=== PATIENT | male | born 1945 | race Caucasian/White ===

== ENCOUNTER 2020-06-23 13:49 | Emergency (ER) | payer MEDICARE, SELFPAY ==
[2020-06-23] VITALS (32 sets, daily range): BP systolic 72–164; BP diastolic 24–90; PULSE 68–108; RESP 11–37; TEMP 36.6–37.6; O2SAT 95–100
--- NOTE | ~2020-06-23 | XR_ITS ---
EXAMINATION: XR chest 1V portable EXAM DATE: 06/23/2020 16:01 INDICATION: Hypoxia, hypotension. TECHNIQUE: Portable AP frontal chest x-ray was obtained. There is no prior study for comparison. FINDINGS: There is mild cardiomegaly. Pulmonary vascular congestion and possible mild pulmonary edema . No confluent consolidation, pneumothorax or pleural effusion suspected. There are mild bony degener ative changes. IMPRESSION: Findings consistent with mild CHF exacerbation. Reviewed, dictated and finalized at location A. GRAPHICAL ENGINEER
--- NOTE | ~2020-06-23 | CT_ITS ---
EXAMINATION: CT brain wo con DATE: 06/23/2020 15:59 INDICATION: Altered mental status. TECHNIQUE: Computed tomography (CT) of the head was performed without intravenous contrast. The mA wa s adjusted according to patient size. Iterative reconstruction technique was employed. The dose-lengt h product was 605.33 mGy-cm. COMPARISON: None FINDINGS: There is a hyperdense mass in left temporal lobe, consistent with intraparenchymal hemorrha ge. There is surrounding low-attenuation vasogenic edema. There is no acute ischemic infarct. There a re scattered areas of low attenuation in the cerebral white matter. The ventricles are normal in size . There is mucosal thickening in the paranasal sinuses. There are likely changes of right ocular lens replacement surgery. The mastoid air cells are normal. There is left posterior scalp soft tissue swe lling. IMPRESSION: 1. Acute intraparenchymal hematoma in left temporal lobe. I called this result to Dr. Rey. 2. Mild nonspecific cerebral white matter disease, which likely represents chronic small vessel ische bere disease. Reviewed, dictated and finalized at location A. ETIZER IMPRESSION: 1. Acute intraparenchymal hematoma in left temporal lobe. I called this result to Dr. Rey. 2. Mild nonspecific cerebral white matter disease, which likely represents automotive buyer noni small vessel ischemic disease.
--- NOTE | ~2020-06-23 | CT_ITS ---
EXAMINATION: CTA chest PE protocol EXAM DATE: 06/23/2020 15:59 INDICATION: Shortness of breath and hypoxia. Altered mental status. TECHNIQUE: Spiral CTA of the chest (pulmonary arteries) was performed with 100 cc Omnipaque 350 intr avenous contrast injection. Images were acquired during the pulmonary arterial phase. Coronal maxi mum intensity projection 3D-reconstructions were created by the technologist on dedicated workstation . Axial, coronal and sagittal reformatted images were reviewed. The dose-length product (DLP) for t his examination was 671.11 mGy-cm. The exposure was tailored according to patient size (auto mA exp osure control), and iterative reconstruction (ASIR) was used as additional dose reduction technique. There is no prior study for comparison. FINDINGS: Pulmonary arteries are well opacified and without intraluminal filling defects. No thora cic aortic dissection. There is moderate emphysema. Scattered right upper lobe pulmonary nodules up t o 6 mm probably postinfectious but a six-month follow-up chest CT is recommended. There are no pleur al or pericardial effusions. Tracheobronchial tree is patent. There is no mediastinal, hilar or a xillary lymphadenopathy. There is no pneumothorax. There is cardiomegaly and pulmonary vascular c ongestion. Some prominent interlobular, possible mild pulmonary edema.. No evidence of coronary wilbert rial calcification. There is small sliding gastroesophageal hiatal hernia. There is thoracic spondyl osis without osteoblastic or osteolytic lesions identified. IMPRESSION: 1. Findings consistent with mild CHF exacerbation. 2. Scattered right apical nodules likely postinfectious but 6 month follow-up chest CT recommended. 3. Moderate emphysema. 4. Small hiatal hernia. Reviewed, dictated and finalized at location A. ITAL ACCOUNT MANAGER
--- NOTE | 2020-06-23 14:02 | ECG_ITS ---
Measurements Intervals [place] Rate: 71 P: 52 SC: 136 QRS: 61 QRSD: 90 T: 119 QT: 419 QTc: 457 Interpretive Statements SINUS RHYTHM INCOMPLETE RIGHT BUNDLE BRANCH BLOCK BORDERLINE ST ABNORMALITY- ANTEROLATERAL LEADS BASELINE WANDER- I, II, AVR, AVL, AVF, V1-V2, V4-V5 BORDERLINE ECG Electronically Signed On 06-23-2020 14:10:33 COMPUTER SYSTEMS SECURITY ADMINISTRATOR by Harry Brown D.O.
--- NOTE | 2020-06-23 14:17 | ED.GENADULT ---
HPI - General Adult General Chief complaint: Weakness Stated complaint: LOW BP Time Seen by Provider: 06/23/20 13:59 Source: patient and EMS Mode of arrival: EMS Limitations: clinical condition History of Present Illness HPI narrative: Patient 74-year-old male brought in by EMS due to hypoxia and low blood pressure at the [facility]. Per EMS his blood pressure was in the 60s over 40s and O2 sat at 76% on room air. Patient was discharged from [facility] yesterday due to vertebral fracture. Patient denies any chest pain, shortness of breath, abdominal pain, nausea, vomiting, diarrhea or fever. Patient is a poor historian. Related Data Home Medications Medication Instructions Recorded Confirmed finasteride [Proscar] mg 06/23/20 lisinopril 10 mg PO BID 06/23/20 06/23/20 metformin 500 mg PO DAILY 06/23/20 06/23/20 metoprolol tartrate 25 mg PO DAILY 06/23/20 06/23/20 oxycodone 10 mg PO Q4H PRN 06/23/20 06/23/20 pantoprazole PO 06/23/20 polyethylene glycol 3350 [Miralax] 06/23/20 prednisone 06/23/20 propylthiouracil 06/23/20 senna 06/23/20 tamsulosin mg PO 06/23/20 Allergies Allergy/AdvReac Type Severity Reaction Status Date / Time No Known Allergies Allergy Verified 06/23/20 14:18 Review of Systems Review of Systems: ROS unobtainable: Yes unobtainable due to mental status [facility] Social History Social History Gender identity (if verbalized by the patient): Male Exam Const: General: confusion Limitations: no limitations Other: Moderate distress, frail HENMT: Head: normal to inspection, normocephalic and atraumatic Ears: hearing grossly normal bilaterally, TM normal on the right and TM normal on the left General nose exam: Normal external nose present, Normal nares present and No nasal discharge present Face and sinus: normal facial exam Mouth: Yes Normal oral and palatal mucosa present, Yes lip normal, Yes tongue normal and Yes oropharynx normal Throat: posterior oropharynx normal, tonsils normal and uvula midline Eyes: General: appearance normal, both eyes and all related structures Pupils: Equal, round and reactive pupils present EOM: EOMs intact bilaterally Neck: Neck: normal visual inspection, full ROM, no lymphadenopathy and no meningeal signs Chest: Chest palpation & inspection: normal inspection of the chest Resp: Effort & Inspection: normal respiratory effort, able to speak in complete sentences, no respiratory distress and not tachypneic Auscultation: clear to auscultation bilaterally, no crackles, no rales, no rhonchi and no wheezes Cardio: Rate: regular rate Rhythm: regular rhythm GI: Inspection: normal to inspection GI Palp: No abdominal tenderness, Yes Soft to palpation, No Tenderness to palpation present (GI), No Guarding due to palpation present (GI), No Rigid due to palpation and No Rebound tenderness present Auscultation: normal bowel sounds : General: Yes no CVA tenderness Back/Spine/Pelvis: Back: no CVA tenderness Skin: General skin exam: normal color, no rashes or lesions noted, elasticity normal and turgor normal Neuro: General: tone normal, moves all extremities, Normal light touch and pain sensation, no meningeal signs, no focal motor deficits, CN's II-XI intact bilaterally and No confusion Cranial nerves: Yes Equal, round and reactive pupils present Speech: No Abnormal speech present Sensory Exam: No Sensory deficit (Neuro) Other: Patient is not oriented to time place or person Extrem: General: normal to inspection, full ROM and capillary refill normal Psych: Appearance: grossly normal Mental Status: mental status grossly normal Speech and movement: Normal speech and movement present Affect: normal affect Attitude: cooperative Course Course Emergency Course: Reexamined at at 4:30 PM, patient is now alert and oriented x3. Patient's only complaint is I am constipated , has no other complaints. Vital Signs Vital signs: Vital Signs Temperature 36.6 C
[2020-06-23] MEDS: Please add drug allergy info to patient profile. 1 EACH XX (14:18)
[2020-06-23 14:47] LABS: Add Urine Microscopic? YES; Appearance Urine Cloudy (Clear); Bacteria Urine Trace /hpf; Bilirubin Urine Negative (Negative); Blood Urine Negative (Negative); Color Urine Yellow (Yellow); Glucose Urine UA Negative (Negative); Ketones Urine Negative (Negative); Leukocyte Esterase Ur 2+ LEU/UL (Negative); Mucus Urine Rare /lpf; Nitrate Urine Negative (Negative); Protein Urine 1+ mg/dL (Negative); Specific Grav Ur 1.019 (1.001-1.035); Squamous Epithelial Cell Urine Rare /hpf (Few); Urobilinogen Urine Negative mg/dL (<2.0); WBC Clumps Urine Present /HPF; WBC Urine >75 /hpf
[2020-06-23] MEDS: NOREPINEPHRINE 8 MG/D5W 250 ML 8 MG/250 ML BAG 13.13 MG IV CONT (14:48)
--- NOTE | 2020-06-23 15:00 | PC.NURSE ---
Patient received 2,300 ml of LR infusion on arrival to ED per sepsis protocol.
[2020-06-23 15:09] LABS: Basophils Percent Auto 0.1 % (0.2-1.2); Eosinophils Percent Auto 0.1 % (0-4.4); Hematocrit 30.1 % (42.0-52.0); Immature Granulocyte Percent A 2.1 % (0-0.5); Lymphocytes Absolute Auto 0.67 K/mm3 (0.9-3.2); Lymphocytes Percent Auto 6.9 % (18.3-44.2); Mean Corpuscular HGB Conc 29.9 g/dl (32-36); Mean Corpuscular Hemoglobin 26.2 pg (26-34); Mean Corpuscular Volume 87.5 fl (80-100); Mean Platelet Volume 9.4 fl (7.4-10.4); Monocytes Absolute Auto 0.6 K/mm3 (0.1-0.6); Monocytes Percent Auto 6.4 % (2.6-8.5); Neutrophils Absolute Auto 8.1 K/mm3 (1.3-6.7); Neutrophils Percent Auto 84.4 % (45.5-73.1); Nucleated Red Blood Cells Perc 0.3 % (0.0-0.2); Platelet Count Result 244 k/mm3 (150-375); Red Blood Count 3.44 M/mm3 (4.6-6.20); White Blood Count 9.7 K/mm3 (4.5-10.0)
--- NOTE | 2020-06-23 15:15 | PC.NURSE ---
Per patient he does not have any known drug allergies. No allergies were documented on retirement transfer paperwork.
[2020-06-23 15:18] LABS: Prothrombin Time 14.2 Seconds (11.1-14.7)
[2020-06-23 15:19] LABS: Partial Thromboplastin Time 24.4 SECONDS (22.3-36.8)
[2020-06-23 15:21] LABS: Alanine Aminotransferase 12 U/L (4-50); Alkaline Phosphatase 119 U/L (38-126); Anion Gap 11 mmol/L (8-16); Aspartate Amino Transferase 18 U/L (17-59); Bilirubin,Total 0.4 mg/dL (0.2-1.3); Blood Urea Nitrogen 31 mg/dL (9-20); Calcium 7.9 mg/dL (8.4-10.2); Carbon Dioxide 24 mmol/L (22-30); Chloride 102 mmol/L (98-107); Estimated CRCL calculation 45 ml/min; Estimated Glomerular Filt Rate 49; Glucose 124 mg/dL (75-110); Potassium 4.8 mmol/L (3.4-5.0); Sodium 137 mmol/L (137-145)
[2020-06-23 15:22] LABS: Lactic Acid Reflex 3.8 mmol/L (0.7-2.1)
--- NOTE | 2020-06-23 16:18 | PC.NURSE ---
This RN confirmed with EDP that he would like Levophed started in a 18G peripheral IV. EDP gave verbal order and Levophed was started in 18G right forearm. EDP states It can be ran in a peripheral line for 72 hours before a central line is required.
--- NOTE | 2020-06-23 17:16 | PC.NURSE ---
[facility] accepted transfer to [facility] ETA 1900 Trip #[id number]
[2020-06-23 18:06] LABS: Reflex Lactic Acid Yes or No Add Lactic
--- NOTE | 2020-06-23 18:22 | PC.NURSE ---
Levophed started again, BP reading at 77/29. EDP notified and gave VORB to resume medication.
[2020-06-23] MEDS: LACTATED RINGERS 1,000 ML 999 ML IV CONT (18:58)
--- NOTE | 2020-06-23 19:17 | PC.NURSE ---
touched base with granda new eta [id number]
[2020-06-23 19:41] LABS: Lactic Acid 4.7 mmol/L (0.7-2.1)
--- NOTE | 2020-06-23 20:29 | PC.NURSE ---
contacted [facility] new eta is [id number]
--- NOTE | 2020-06-23 20:44 | PC.NURSE ---
granda has arrived
[2020-06-23] MEDS: LACTATED RINGERS 1,000 ML 150 ML IV CONT (20:45)
--- NOTE | 2020-06-23 21:47 | PC.NURSE ---
Pt. transported to [facility] ER via [facility] w/ Levophed Infusing at 7 mcg/min.
== END 2020-06-23 21:00 | disposition short-term general hospital (02) ==
PROVIDERS: Emergency Provider Emergency Medicine; PCP Family Medicine
DX: A41.9 Sepsis, unspecified organism (principal); R65.21 Severe sepsis with septic shock; I61.9 Nontraumatic intracerebral hemorrhage, unspecified
CPT/HCPCS: 36415; 51701; 70450; 71045; 71275; 80053; 81001; 83605; 85025; 85610; 85730; 87040; 87077; 87086; 87088; 87186; 93005; 96365; 96366; 96368; 99291; J2543; J7120; Q9967

== ENCOUNTER 2020-07-08 15:02 | Inpatient (IN) | payer MEDICARE, SELFPAY ==
[2020-07-08] VITALS (45 sets, daily range): BP systolic 65–120; BP diastolic 28–67; PULSE 64–90; RESP 17–53; TEMP 36.1; O2SAT 80–100; BMI 24.1
--- NOTE | ~2020-07-08 | XR_ITS ---
EXAMINATION: XR chest 1V portable DATE: 07/11/2020 10:14 INDICATION: Hypoxic respiratory failure. TECHNIQUE: A single frontal view of the chest was obtained. COMPARISON: Chest single view 07/08/2020, chest CT 06/23/2020 FINDINGS: There is a diffuse interstitial pattern in the lungs. There are airspace opacities at the l rogelio bases. No pleural effusion or pneumothorax. The heart size is normal. IMPRESSION: 1. Diffuse lung disease with worsening at left lung base, consistent with pneumonia versus pulmonary edema superimposed on emphysema. Reviewed, dictated and finalized at location A. MAINTENANCE TECHNICIAN IMPRESSION: 1. Diffuse lung disease with worsening at left lung base, consistent with pneum onia versus pulmonary edema superimposed on emphysema.
--- NOTE | ~2020-07-08 | XR_ITS ---
EXAMINATION: XR chest 1V portable INDICATION: Shortness of breath, COVID 19 positive TECHNIQUE: Portable AP chest at 1534 hours COMPARISON: 06/23/2020 FINDINGS: There are patchy opacities throughout all lung zones. No pleural effusion or pneumothorax i s identified. The cardiomediastinal silhouette is normal. IMPRESSION: 1. Diffuse lung disease, consistent with pneumonia and/or pulmonary edema. Reviewed, dictated and finalized at location A. HOME SALES CONSULTANT
--- NOTE | ~2020-07-08 | CT_ITS ---
EXAMINATION: CT brain wo con INDICATION: Headache, recent intracranial hemorrhage COMPARISON: 06/23/2020 TECHNIQUE: Standard unenhanced head CT. The dose-length product (DLP) was 605.33 mGy-cm. The mA was a djusted according to patient size. Iterative reconstruction technique was employed. FINDINGS: Again seen is a persistent hyperdense mass in the left temporal lobe which is decreased in size measuring 1.6 cm, previously 2.3 cm. Surrounding vasogenic edema has decreased. No evidence of a cute infarction. There is mild periventricular and subcortical hypodensity probably related to small vessel ischemic disease. There is mild prominence of the sulci and ventricles related to cerebral atr ophy. Intracranial calcified cerebral atherosclerosis is noted. There are no extra-axial collections. There is no mass effect or midline shift. Changes in the globes are likely from ocular lens surgery. The visualized sinuses and mastoid air cells are well aerated. IMPRESSION: 1. Intraparenchymal hematoma of the left temporal lobe with decrease in size and decrease in surround ing vasogenic edema. No acute intracranial abnormality. 2. Age related findings. Reviewed, dictated and finalized at location A. OR SOFTWARE PROJECT MANAGER IMPRESSION: 1. Intraparenchymal hematoma of the left temporal lobe with decrease in size an d decrease in surrounding vasogenic edema. No acute intracranial abnormality. 2. Age related findings.
--- NOTE | 2020-07-08 15:04 | ECG_ITS ---
Measurements Intervals [place] Rate: 71 P: HI: 0 QRS: 32 QRSD: 76 T: 119 QT: 411 QTc: 447 Interpretive Statements SINUS RHYTHM INCOMPLETE RIGHT BUNDLE BRANCH BLOCK BASELINE ARTIFACT- I, II, III, AVR, AVL, AVF, V1-V6 ABNORMAL ECG Electronically Signed On 07-08-2020 15:37:17 CORE WINDING OPERATOR by Harry Brown D.O.
--- NOTE | 2020-07-08 15:09 | PC.NURSE ---
VERBAL ORDER FROM ERP INGE FOR SEPSIS PROTOCOL.
--- NOTE | 2020-07-08 15:09 | PC.NURSE ---
PT FOUND TO BE 86% ON HIS HOME O2 SETTING OF 4L. PLACED ON 6L WITHOUT RESULTS, PLACED ON NONREBREATHER RESULTING IN O2 SATURATION OF 88%. ED RESPIRATORY CALLED FOR STAT BIPAP PLACEMENT. [facility] RESPIRATORY THERAPIST AT BEDSIDE.
[2020-07-08 15:37] LABS: Alveolar/Arterial O2 Gradient 630.6 mmHg; Fractional Inspired Oxygen 100 %; HCO3 ABG 17.2 mEq/l (22.0-26.0); Oxygen Content ABG 11.2 %vol (16.0-22.0); Oxyhemoglobin 82.5 % THb (90.0-100.0); PCO2 ABG 29.9 mmHg (35.0-45.0); PO2 ABG 52.5 mmHg (80.0-100.0); PO2 FiO2 Ratio Arterial Blood 0.52 %; Total Hemoglobin 9.6 g/dL (12.0-18.0); pH ABG 7.377 (7.350-7.450)
[2020-07-08 15:38] LABS: Basophils Percent Auto 0.2 % (0.2-1.2); Hematocrit 35.1 % (42.0-52.0); Hemoglobin 10.4 g/dL (14.0-18.0); Immature Granulocyte Absolute 0.07 K/mm3 (0.00-0.031); Immature Granulocyte Percent A 1.2 % (0-0.5); Lymphocytes Absolute Auto 0.39 K/mm3 (0.9-3.2); Lymphocytes Percent Auto 6.9 % (18.3-44.2); Mean Corpuscular HGB Conc 29.6 g/dl (32-36); Mean Corpuscular Hemoglobin 25.9 pg (26-34); Mean Corpuscular Volume 87.5 fl (80-100); Mean Platelet Volume 10.5 fl (7.4-10.4); Monocytes Absolute Auto 0.4 K/mm3 (0.1-0.6); Monocytes Percent Auto 7.1 % (2.6-8.5); Neutrophils Absolute Auto 4.8 K/mm3 (1.3-6.7); Neutrophils Percent Auto 84.6 % (45.5-73.1); Platelet Count Result 257 k/mm3 (150-375); Red Blood Count 4.01 M/mm3 (4.6-6.20); Red Cell Distribution Width 18.7 % (11.5-14.5); White Blood Count 5.7 K/mm3 (4.5-10.0)
[2020-07-08 15:41] LABS: Device NON-REBREATHER MASK; Site Drawn LEFT BRACHIAL
[2020-07-08 15:44] LABS: Ovalocytes 1+ (NORMAL); Platelet Estimate Adequate (Adequate)
--- NOTE | 2020-07-08 15:46 | PC.NURSE ---
PT ATTEMPTED UA, UNABLE TO VOID, REFUSING CATH, TO ATTEMPT LATER.
[2020-07-08 15:47] LABS: INR 1.1; Prothrombin Time 14.4 Seconds (11.1-14.7)
[2020-07-08 15:48] LABS: Partial Thromboplastin Time 28.2 SECONDS (22.3-36.8)
[2020-07-08 15:52] LABS: Lactic Acid Reflex 6.8 mmol/L (0.7-2.1)
[2020-07-08 15:56] LABS: Albumin Level 3.8 g/dL (3.5-5.1); Alkaline Phosphatase 111 U/L (38-126); Anion Gap 14 mmol/L (8-16); Aspartate Amino Transferase 39 U/L (17-59); Bilirubin,Total 0.6 mg/dL (0.2-1.3); Blood Urea Nitrogen 42 mg/dL (9-20); Calcium 9.1 mg/dL (8.4-10.2); Carbon Dioxide 21 mmol/L (22-30); Chloride 103 mmol/L (98-107); Estimated CRCL calculation 28 ml/min; Estimated Glomerular Filt Rate 33; Glucose 145 mg/dL (75-110); Potassium 4.8 mmol/L (3.4-5.0); Sodium 138 mmol/L (137-145)
[2020-07-08 16:01] LABS: Alanine Aminotransferase 31 U/L (4-50)
[2020-07-08 16:02] LABS: NT Pro B Type Natriuretic Pept 975 PG/ML (5-100); Troponin I 0.021 ng/mL (0.000-0.034)
[2020-07-08] MEDS: SODIUM CHLORIDE 0.9% IV 1,000 ML 999 ML IV CONT ×3 (16:05→17:11)
[2020-07-08 16:09] LABS: CRP 16.7 mg/dL (<1.0)
[2020-07-08 16:12] LABS: Add Urine Microscopic? YES; Appearance Urine Clear (Clear); Bilirubin Urine Negative (Negative); Blood Urine Negative (Negative); Color Urine Yellow (Yellow); Glucose Urine UA 1+ mg/dL (Negative); Ketones Urine Negative (Negative); Leukocyte Esterase Ur Negative LEU/UL (Negative); Mucus Urine Rare /lpf; Nitrate Urine Negative (Negative); Protein Urine Negative (Negative); Specific Grav Ur 1.018 (1.001-1.035); Squamous Epithelial Cell Urine Occasional /hpf (Few); Urobilinogen Urine Negative mg/dL (<2.0)
--- NOTE | 2020-07-08 16:17 | PC.NURSE ---
RESP tHERAPIST [facility] PLACING BIPAP ON PT.
--- NOTE | 2020-07-08 16:17 | PC.NURSE ---
Addendum entered by Giovanni Stern RN 07/08/20 16:18: CORRECT TIME [id number] Original Note: PT NOTED TO BE HYPOTENSIVE, VERBAL ORDER FROM ERP [facility] FOR 2L NS IV BOLUS STAT.
--- NOTE | 2020-07-08 17:09 | PC.NURSE ---
SPOKE WITH LUIS ALCAZAR, PT TO RECIEVE ONLY 160 ML OF 3RD NS LITER TO FULFILL HIS 30ML/KG SEPSIS BOLUS.
[2020-07-08] MEDS: DEXAMETHASONE SOD PHOS INJ 4 MG/ML VIAL 6 MG IV PUSH (17:12)
--- NOTE | 2020-07-08 18:03 | ED.GENADULT ---
HPI - General Adult General Chief complaint: Shortness of Breath/Dyspnea Stated complaint: SOB, covid + Time Seen by Provider: 07/08/20 15:06 History of Present Illness HPI narrative: Patient is a 74-year-old gentleman who presents the emergency department with chief complaint of shortness of breath. Patient was recently admitted at [facility] after he had a head bleed and also was diagnosed with COVID-19 pneumonia. Patient has been at a local jail and started having increasing shortness of breath the patient was brought and extremely tachypneic and hypoxic. Upon arrival the patient was placed on BiPAP and the patient is doing much better he is received fluid resuscitation and has had improvement in his blood pressure. Currently the patient is awake alert and feeling much better. Related Data Home Medications Medication Instructions Recorded Confirmed finasteride [Proscar] mg 06/23/20 lisinopril 10 mg PO BID 06/23/20 06/23/20 metformin 500 mg PO DAILY 06/23/20 06/23/20 metoprolol tartrate 25 mg PO DAILY 06/23/20 06/23/20 oxycodone 10 mg PO Q4H PRN 06/23/20 06/23/20 pantoprazole PO 06/23/20 polyethylene glycol 3350 [Miralax] 06/23/20 prednisone 06/23/20 propylthiouracil 06/23/20 senna 06/23/20 tamsulosin mg PO 06/23/20 acetaminophen 325 mg PO ONCE PRN 07/08/20 albuterol sulfate 2 puff INHALATION QID PRN 07/08/20 amiodarone 200 mg PO DAILY 07/08/20 cefpodoxime 200 mg PO BID 07/08/20 cholecalciferol (vitamin D3) 25 mcg PO DAILY 07/08/20 digoxin 125 mcg PO DAILY 07/08/20 diltiazem HCl 120 mg PO DAILY 07/08/20 ferrous sulfate [iron] 325 mg PO DAILY 07/08/20 fluticasone furoate-vilanterol 1 inh INHALATION DAILY 07/08/20 [Breo Ellipta] furosemide [Lasix] 20 mg PO DAILY 07/08/20 guaifenesin [Mucinex] 600 mg PO BID 07/08/20 isosorbide mononitrate 120 mg PO DAILY 07/08/20 lidocaine [Lidoderm] 1 patch TOPICAL DAILY 07/08/20 Allergies Allergy/AdvReac Type Severity Reaction Status Date / Time No Known Allergies Allergy Verified 06/23/20 14:18 Review of Systems Review of Systems: Narrative: A 10 system review of systems was completed on the patient and is negative except for what is stated in the HPI. Nursing and ancillary documentation was reviewed. PMFSH Social History Social History Gender identity (if verbalized by the patient): Male Comments Intercerebral hemorrhage, vertebral fracture COVID-19 Social history the patient is a resident of a local nursing facility Exam Narrative: Exam Narrative: GENERAL: Well-appearing, well-nourished, and in no acute distress. HEAD: Normocephalic, atraumatic. EYES: PERRLA and EOMI. ENT: Nares clear, no rhinorrhea or epistaxis. Mucous membranes moist. NECK: Supple. CHEST: Clear to auscultation. Moderate respiratory distress. HEART: Regular rate and rhythm. No murmur heard. Normal peripheral pulses. ABDOMEN: Soft, nontender, nondistended, normal active bowel sounds. EXTREMITIES: Normal range of motion. No edema. SKIN: Warm, dry, no rash. NEURO: No focal deficits. Alert and oriented x3. PSYCH: Normal mood and affect. Course Course Emergency Course: Patient was started on BiPAP and received fluid resuscitation. The patient was recently at [facility] and it was discussed with [facility] but they are currently holding a 48-hour wait for beds. The patient has significantly improved and the case was discussed with the hospitalist service and the patient will be admitted locally received fluid resuscitation IV antibiotics and the patient will be admitted to the IMCU. Vital Signs Vital signs: Vital Signs Pulse Rate 73 07/08/20 14:55 Respiratory Rate 27 H 07/08/20 14:55 Blood Pressure 92/48 L 07/08/20 14:55 Pulse Oximetry 80 L 07/08/20 14:55 Pulse Rate 68 07/08/20 18:00 Respiratory Rate 33 H 07/08/20 18:00 Blood Pressure 76/58 L 07/08/20 17:31 Pulse Oximetry 100 07/08/20 18:00 Medical Decision Making Vital Signs Vital Signs: V
--- NOTE | 2020-07-08 18:05 | PC.NURSE ---
PT C/O PAIN IN HIS BACK, DISCUSSED WITH LUIS ALCAZAR WHO IS PLACING ORDERS.
[2020-07-08] MEDS: SODIUM CHLORIDE 0.9% IV 1,000 ML 125 ML IV CONT (18:17)
[2020-07-08] MEDS: MORPHINE SULFATE (*CRX) 4 MG/ML INJ IV PUSH (18:17)
--- NOTE | 2020-07-08 18:17 | PC.NURSE ---
PER ERP LIPSMEYER VERBAL ORDER FOR 4MG MORPHINE IVP STAT.
[2020-07-08 18:35] LABS: Reflex Lactic Acid Yes or No Add Lactic
[2020-07-08 19:07] LABS: Lactic Acid 1.9 mmol/L (0.7-2.1)
--- NOTE | 2020-07-08 20:53 | ADMGEN ---
This patient, Leandro Rivas, was admitted to IMU Room 214-01 AT 2020. Patient/family oriented to hospital policies and general routines including ID bracelet, bed and alarms, visiting hours, pain management, procedures, bathroom and other care routines, personal items, smoking policy, room service/diet, and visiting hours. Information on how to activate the Rapid Response Team has been discussed. Patient/Family are encouraged to report perceived risks to care and to ask questions if they do not understand what they are told or what they should do.
[2020-07-08 21:38] LABS: Troponin I < 0.012 ng/mL (0.000-0.034)
--- NOTE | 2020-07-08 22:16 | PM.IMHP ---
H&P: HPI History of Present Illness Date/Time: 07/08/20 22:16 Chief Complaint: Hypoxia Narrative: Leandro Rivas is a 74 year old male with a past medical history CHF, atrial fibrillation not on anticoagulation due to recent intercranial hemorrhage, COPD, and BPH who presented to the ER from with shortness of breath. At the time of EMS arrival to the scene the patient was in respiratory distress and hypotensive. He received fluid resuscitation and was placed on BiPAP. On arrival to the ER his blood pressures remained low at 74/38. In the ER he received a 30 mL/kilos bolus. His blood pressures subsequently rebounded into the normal range. On Decadron 10 the ER but have subsequently discontinued this since patient received a full code worse of Decadron at the end of May to early June. Tachypneic and hypoxic. He was satting 80% on 4 L nasal cannula. His oxygenation did not improve replacement on non rebreather. The patient was only able to speak in single word sentences and was placed on BiPAP. With BiPAP patient was actually pulling tidal volumes of 800 to a 1000. While I was at the patient's bedside it did adjust his BiPAP settings to 7/5 and decreased his FiO2 down to 70% with these adjustments his tidal volumes were ranging between 500 and 800. His tachypnea improved with these adjustments. He denies having any fevers but it is feeling chilled. He denies any chest pain or palpitations. He is only a fair to poor historian and is difficult to elicit history with BiPAP in place. The patient had been admitted to [facility] 06/15/2020 due to a fall down an unknown number of steps resulting in left temporal subarachnoid hemorrhage, rib fractures and lumbar burst fracture. He had been on Xarelto at the time of his fall. His subarachnoid hemorrhage with accompanied by some vasogenic edema. He was discharged from the hospital 06/21/2020. He then presented back to our ER on 06/23/2020 was transferred back to [facility]. At that time his CT of the head demonstrated stable subarachnoid hemorrhage. At the time of his discharge from hospital on June 21 his creatinine was normal at 0.7 he was in our ER on June 23 his creatinine had jumped to 1.4 and today it is 2.0. On 06/15/2020 he was diagnosed with COVID and was started on Remdesivir and dexamethasone. He was not requiring oxygen by the time of his discharge. The information regarding the the patient's 2nd hospitalization at [facility] is not available for my review. He had evidently been evaluated on the 7th in our ER and was found to be hypotensive and septic. Was reportedly consistent with CHF exacerbation. I suspect patient was treated for pneumonia since he was discharged on a cephalosporin. The patient cannot give me any details regarding that hospitalization. Review of Systems Review of Systems: Narrative: 12 systems were reviewed with pertinent positives and negatives per HPI. Except as documented in the HPI, all other systems were reviewed and are negative. [facility] Past Medical History Medical History (Updated 07/09/20 @ 09:03 by Sharon Ragsdale DO) Atrial fibrillation BPH (benign prostatic hyperplasia) Carotid stenosis, bilateral CHF (congestive heart failure) COPD (chronic obstructive pulmonary disease) Coronary artery disease GERD (gastroesophageal reflux disease) Hyperthyroidism Iron deficiency anemia Lumbar burst fracture Acute L4 burst fracture 06/15/2020 Osteoporosis Rib fractures 06/15/2020 Subarachnoid hemorrhage 06/15/2020 left temporal with bilateral isodense subdural hematomas with both an acute and chronic component Surgical History Surgical History (Updated 07/09/20 @ 05:20 by Sharon Ragsdale DO) History of bowel resection Due to perforation History of ventral hernia repair Family History Family History Other Unknown family medical history S
[2020-07-09] VITALS (21 sets, daily range): BP systolic 102–129; BP diastolic 36–59; PULSE 63–107; RESP 20–45; TEMP 36.1–36.9; O2SAT 87–100
[2020-07-09] MEDS: SODIUM CHLORIDE 0.9% IV 1,000 ML 75 ML IV CONT ×2 (04:58→18:27)
[2020-07-09 05:53] LABS: Base Excess ABG -5.8 mEq/l (+/-2.0); Carboxyhemoglobin 0.3 % THb (0-2.0); Device NON-INVASIVE VENT; Fractional Inspired Oxygen 70 %; HCO3 ABG 18.7 mEq/l (22.0-26.0); Modified Allen's Test Pass; Oxygen Content ABG 12.5 %vol (16.0-22.0); Oxygen Saturation ABG 95.5 % (95.0-100.0); Oxyhemoglobin 92.9 % THb (90.0-100.0); PO2 ABG 78.6 mmHg (80.0-100.0); PO2 FiO2 Ratio Arterial Blood 1.12 %; Reduced Hemoglobin 6.8 %THb (0-5.0); Site Drawn RIGHT RADIAL; Total Hemoglobin 9.5 g/dL (12.0-18.0); pH ABG 7.372 (7.350-7.450)
[2020-07-09 05:54] LABS: Non-Invasive Expiratory Pressure 5 CMH2O; Non-Invasive Inspiratory Pressure 7 CMH2O; Non-Invasive Vent Rate 16 /MIN
[2020-07-09 07:15] LABS: Basophils Percent Auto 0.2 % (0.2-1.2); Hematocrit 27.9 % (42.0-52.0); Hemoglobin 8.2 g/dL (14.0-18.0); Immature Granulocyte Absolute 0.02 K/mm3 (0.00-0.031); Immature Granulocyte Percent A 0.5 % (0-0.5); Lymphocytes Percent Auto 9.6 % (18.3-44.2); Mean Corpuscular HGB Conc 29.4 g/dl (32-36); Mean Corpuscular Volume 88.6 fl (80-100); Mean Platelet Volume 10.4 fl (7.4-10.4); Monocytes Absolute Auto 0.2 K/mm3 (0.1-0.6); Neutrophils Absolute Auto 3.5 K/mm3 (1.3-6.7); Neutrophils Percent Auto 84.7 % (45.5-73.1); Platelet Count Result 168 k/mm3 (150-375); Red Blood Count 3.15 M/mm3 (4.6-6.20); Red Cell Distribution Width 18.7 % (11.5-14.5); White Blood Count 4.2 K/mm3 (4.5-10.0)
[2020-07-09] MEDS: ALBUTEROL SULFATE NEB 2.5 MG/0.5 ML INH 5 MG INHALATION ×3 (07:50→22:00)
[2020-07-09] MEDS: IPRATROPIUM BR 0.02% INH SOLN 0.5 MG/2.5 ML VIAL INHALATION ×3 (07:50→22:01)
[2020-07-09] MEDS: AMIODARONE HCL 200 MG TABLET PO (09:28)
[2020-07-09] MEDS: guaiFENesin 12 HR 600 MG TABCR PO ×2 (09:32→20:34)
[2020-07-09] MEDS: DIGOXIN TAB 125 MCG TABLET PO (09:33)
[2020-07-09] MEDS: propylthiouraciL 50 MG TABLET PO ×3 (09:33→18:28)
[2020-07-09 10:36] LABS: Anion Gap 10 mmol/L (8-16); Blood Urea Nitrogen 26 mg/dL (9-20); CRP 14.3 mg/dL (<1.0); Calcium 7.9 mg/dL (8.4-10.2); Carbon Dioxide 21 mmol/L (22-30); Chloride 111 mmol/L (98-107); Estimated CRCL calculation 67 ml/min; Estimated Glomerular Filt Rate > 60; Glucose 109 mg/dL (75-110); Lactate Dehydrogenase 748 U/L (313-618); Sodium 142 mmol/L (137-145)
[2020-07-09 10:59] LABS: Thyroid Stimulating Hormone Reflex 0.019 uIU/mL (0.465-4.68)
[2020-07-09] MEDS: TAMSULOSIN HCL 0.4 MG CAPSULE PO (10:59)
[2020-07-09] MEDS: predniSONE 10 MG TABLET PO (10:59)
[2020-07-09] MEDS: FINASTERIDE 5 MG TABLET PO (10:59)
[2020-07-09] MEDS: PANTOPRAZOLE 40 MG TABLET PO (10:59)
[2020-07-09] MEDS: ISOSORBIDE MONONITRATE 30 MG TAB.ER.24H PO (10:59)
[2020-07-09 12:09] LABS: Free T4 Free Thyroxine Reflex 2.41 ng/dL (0.78-2.19)
[2020-07-09] MEDS: AMPICILLIN SULB 3 GM/NS 100 ML 3 GM/100 ML VIAL IVPB ×3 (12:17→23:58)
[2020-07-09] MEDS: CHOLECALCIFEROL 1,000 UNITS TABLET 1000 UNITS PO (14:31)
[2020-07-09] MEDS: FERROUS SULFATE 324 MG TABLET PO (14:31)
--- NOTE | 2020-07-09 16:01 | PM.IMPN ---
Progress Note: A&P Assessment and Plan (1) Acute respiratory failure with hypoxia: Code(s): J96.01 - Acute respiratory failure with hypoxia Status: Acute Assessment and Plan: Likely due to infectious process however CHF is a possibility. The patient's hypotension with good response to fluid administration makes me lean more toward infectious process. The patient was started on Zosyn and vancomycin to treat for possible healthcare associated pneumonia given his recent multiple hospitalizations. In the would be unusual for the patient have pneumonia due to COVID-19 this far out from his initial diagnosis although certainly still a possibility. Patient is not a candidate for Decadron are Remdesivir as he did have these after his initial diagnosis at the end of May. Continue noninvasive ventilator therapy. Repeat ABG with a.m. labs. Continue nebulizer treatments with albuterol and Atrovent. Patient is 74-year-old male initially patient was seen on 06/15/20 after he had fell from stairs while on Xarelto and presented emergency department and was found to have subarachnoid hemorrhage with accompanied by some vasogenic edema patient was sent to [facility] there he was treated and sent to local longterm on 06/21/20, patient presented again to the emergency department on 06/23/20 and was transferred back to the [facility] and from there he was again discharged to local longterm for rehab, today patient was sent to emergency department the shortness of breath, upon EMS arrival patient was hypoxic and hypotensive, patient was on BiPAP and was given IV bolus upon arrival to emergency department his blood pressure was 74/38 and patient was given 30ml/kg bolus which did improve his symptoms, while at [facility] patient was diagnosed with COVID-19 and treated with Decadron and remdesivir, suspect the patient still has a lingering effect COVID-19 resulting in respiratory distress he is currently on BiPAP and unable to provide any history review of symptom, plan is to continue BiPAP and wean the patient off to nasal cannula, will continue to monitor patient and further recommendation to follow. (2) Pneumonia due to COVID-19 virus: Code(s): U07.1 - COVID-19; J12.82 - Pneumonia due to coronavirus disease 2019 Status: Acute Assessment and Plan: Plan is above (3) Acute on chronic renal failure: Qualifiers: Acute renal failure type: unspecified Chronic kidney disease stage: stage 3 (moderate) Chronic kidney disease stage 3 subtype: unspecified whether 3a or 3b Qualified Code(s): N17.9 - Acute kidney failure, unspecified; N18.30 - Chronic kidney disease, stage 3 unspecified Code(s): N17.9 - Acute kidney failure, unspecified; N18.9 - Chronic kidney disease, unspecified Status: Acute Assessment and Plan: Likely due to hypovolemia/hypotension. Will repeat BMP with a.m. labs. Monitor urine output closely. Will hold lisinopril and Lasix. (4) Hyperthyroidism: Code(s): E05.90 - Thyrotoxicosis, unspecified without thyrotoxic crisis or storm Status: Inactive Assessment and Plan: Will check TSH and continue PTU. (5) Atrial fibrillation: Code(s): I48.91 - Unspecified atrial fibrillation Status: Inactive Assessment and Plan: Continue digoxin, amiodarone and Cardizem. Subjective Date/time seen: 07/09/2020 16:23 Interval history: Patient is 74-year-old male initially patient was seen on 06/15/20 after he had fell from stairs while on Xarelto and presented emergency department and was found to have subarachnoid hemorrhage with accompanied by some vasogenic edema patient was sent to [facility] hospital there he was treated and sent to local longterm on 06/21/20, patient presented again to the emergency department on 06/23/20 and was [facility] and from there he was again discharged to local longterm for rehab, today patient was sent to emergency department the
[2020-07-10] VITALS (24 sets, daily range): BP systolic 104–135; BP diastolic 51–67; PULSE 72–160; RESP 20–445; TEMP 36.2–36.8; O2SAT 90–100
[2020-07-10] MEDS: ALBUTEROL SULFATE NEB 2.5 MG/0.5 ML INH 5 MG INHALATION ×2 (03:34→09:48)
[2020-07-10] MEDS: IPRATROPIUM BR 0.02% INH SOLN 0.5 MG/2.5 ML VIAL INHALATION ×4 (03:38→20:51)
[2020-07-10 05:20] LABS: Hematocrit 24.9 % (42.0-52.0); Hemoglobin 7.3 g/dL (14.0-18.0); Mean Corpuscular HGB Conc 29.3 g/dl (32-36); Mean Corpuscular Hemoglobin 25.2 pg (26-34); Mean Corpuscular Volume 85.9 fl (80-100); Mean Platelet Volume 10.1 fl (7.4-10.4); Platelet Count Result 171 k/mm3 (150-375); Red Cell Distribution Width 18.6 % (11.5-14.5); White Blood Count 3.7 K/mm3 (4.5-10.0)
[2020-07-10 06:04] LABS: Anion Gap 6 mmol/L (8-16); Blood Urea Nitrogen 13 mg/dL (9-20); Calcium 7.8 mg/dL (8.4-10.2); Carbon Dioxide 24 mmol/L (22-30); Chloride 113 mmol/L (98-107); Estimated CRCL calculation 87 ml/min; Estimated Glomerular Filt Rate > 60; Glucose 103 mg/dL (75-110); Magnesium 1.3 mg/dL (1.6-2.3); Potassium 3.7 mmol/L (3.4-5.0); Sodium 143 mmol/L (137-145)
[2020-07-10] MEDS: AMPICILLIN SULB 3 GM/NS 100 ML 3 GM/100 ML VIAL IVPB (07:06)
[2020-07-10] MEDS: FUROSEMIDE INJ 40 MG/4 ML VIAL IV PUSH ×2 (10:00→15:48)
--- NOTE | 2020-07-10 10:09 | PM.CNPUL ---
Assessment and Plan Assessment and plan (1) Acute respiratory failure with hypoxia: Code(s): J96.01 - Acute respiratory failure with hypoxia Status: Acute Assessment and Plan: DD may be late onset inflammatory phase of COVID-19, acute CHF with pulmonary edema. Acute bacterial pneumonia is less likely but still possible. - agree with antibiotics for now, Vancomycin, Doxy. Will switch Amp to Ceftriaxone. - change NIV settings to CPAP 8 cm H20 and titrate FiO2 for sats of 92-96% - decrease albuterol to 2.5 mg Neb Q6h - continue ipratropium 0.5 mg Neb Q6h - add pulmicort 0.5 mg Neb Q6h - add methylprednisolone 60 mg IV Q6h and discontinue prednisone - agree with trial of lasix, BNP was 975 on admission with a normal Cr. - 2D echo ordered. - f/u on blood cultures. - spoke to patient about code status and he is full code (2) Hypotension: Code(s): I95.9 - Hypotension, unspecified Status: Acute (3) CHF (congestive heart failure): Code(s): I50.9 - Heart failure, unspecified Status: Acute History of Present Illness History of Present Illness Consult date: 07/10/20 Chief complaint: COVID 19 pneumonia/respiratory failure Narrative: 74 y/o male with h/o COPD, CHF, Afib, DM, hyperthyroidism, BPH was admitted yesterday with hypotension, acute hypoxemic respiratory failure requiring NIV. His BP improved with fluid resuscitation alone and lactic acid normalized. He was started on broad spectrum antibiotics. He was recently admitted to [facility] for subarachnoid hemorrhage treated conservatively and also had COVID-19 and was apparently treated with Remdesivir and Decadron although I see no reports in EMR to confirm that. His CXR on this admission is markedly worse than two weeks ago with diffuse bilateral interstitial opacities with hyperinflated lungs Review of Systems Review of Systems: All systems reviewed & are unremarkable except as noted in HPI and below [facility] Past Medical History Medical History (Updated 07/10/20 @ 10:27 by Thalia Francis MD) Atrial fibrillation BPH (benign prostatic hyperplasia) Carotid stenosis, bilateral CHF (congestive heart failure) COPD (chronic obstructive pulmonary disease) Coronary artery disease GERD (gastroesophageal reflux disease) Hyperthyroidism Iron deficiency anemia Lumbar burst fracture Acute L4 burst fracture 06/15/2020 Osteoporosis Rib fractures 06/15/2020 Subarachnoid hemorrhage 06/15/2020 left temporal with bilateral isodense subdural hematomas with both an acute and chronic component Surgical History Surgical History (Updated 07/09/20 @ 05:20 by Sharon Ragsdale DO) History of bowel resection Due to perforation History of ventral hernia repair Family History Family History Other Unknown family medical history Social History Social History (Updated 07/09/20 @ 05:22 by Sharon Ragsdale DO) Social History: He reports that he smoked up to 3 packs of cigarettes per day and quit smoking in 2019. He smoked for approximately 54 years. He denies any history of heavy alcohol use in the past. He is currently . He reports that he has 2 children. Smoking status: Former smoker Tobacco type: cigarettes Second hand tobacco smoke exposure: Yes Alcohol intake: never Substance use: never Gender identity (if verbalized by the patient): Male Spiritual care concerns: No Meds Home Medications and Allergies Home Medications Medication Instructions Recorded Confirmed Type finasteride [Proscar] 5 mg PO DAILY 06/23/20 07/08/20 History lisinopril 10 mg PO DAILY 06/23/20 07/08/20 History metformin 500 mg PO BID 06/23/20 07/08/20 History metoprolol tartrate 25 mg PO BID 06/23/20 07/08/20 History oxycodone 10 mg PO Q4H PRN 06/23/20 07/08/20 History pantoprazole 40 mg PO DAILY 06/23/20 07/08/20 History polyethylene glycol 3350 [Miralax] 17 g PO DAILY 06/23/2006/18
--- NOTE | 2020-07-10 10:17 | ECG_ITS ---
Measurements Intervals [place] Rate: 101 P: 87 SD: 140 QRS: 69 QRSD: 125 T: 5 QT: 345 QTc: 447 Interpretive Statements SINUS TACHYCARDIA RIGHT BUNDLE BRANCH BLOCK BORDERLINE ST-T WAVE ABNORMALITY- ANTEROLATERAL LEADS BASELINE ARTIFACT- I, II, III, AVL, AVF, V1, V4-V6 ABNORMAL ECG Electronically Signed On 07-11-2020 7:08:36 DRILL SHARPENER OPERATOR by Harry Brown D.O.
[2020-07-10] MEDS: AMIODARONE HCL 200 MG TABLET PO (10:27)
[2020-07-10] MEDS: DIGOXIN TAB 125 MCG TABLET PO (10:27)
[2020-07-10] MEDS: propylthiouraciL 50 MG TABLET PO ×3 (10:27→17:12)
[2020-07-10] MEDS: guaiFENesin 12 HR 600 MG TABCR PO ×2 (10:27→21:11)
[2020-07-10] MEDS: ISOSORBIDE MONONITRATE 30 MG TAB.ER.24H PO (10:28)
[2020-07-10] MEDS: POTASSIUM CHLORIDE 20 MEQ TABLET 40 MEQ PO (10:28)
[2020-07-10] MEDS: CHOLECALCIFEROL 1,000 UNITS TABLET 1000 UNITS PO (10:30)
[2020-07-10] MEDS: TAMSULOSIN HCL 0.4 MG CAPSULE PO (10:30)
[2020-07-10] MEDS: FINASTERIDE 5 MG TABLET PO (10:30)
[2020-07-10] MEDS: PANTOPRAZOLE 40 MG TABLET PO (10:30)
[2020-07-10] MEDS: FERROUS SULFATE 324 MG TABLET PO (10:30)
[2020-07-10] MEDS: MAGNESIUM OXIDE 400 MG TABLET PO (10:31)
[2020-07-10] MEDS: MAGNESIUM SULFATE 3GM/D5W100ML 3 GM/100 ML BAG IVPB (10:36)
[2020-07-10] MEDS: methylPREDNISolone SOD SUCC 125 MG VIAL 60 MG IV PUSH ×2 (11:12→17:12)
[2020-07-10 11:45] LABS: NT Pro B Type Natriuretic Pept 1100 PG/ML (5-100); Troponin I 0.013 ng/mL (0.000-0.034)
[2020-07-10] MEDS: ALPRAZolam (*CRX) 0.25 MG TABLET PO (12:32)
--- NOTE | 2020-07-10 14:26 | PM.IMPN ---
Progress Note: A&P Assessment and Plan (1) Acute respiratory failure with hypoxia: Code(s): J96.01 - Acute respiratory failure with hypoxia Status: Acute Assessment and Plan: Patient is 74-year-old male initially patient was seen on 06/15/20 after he had fell from stairs while on Xarelto and presented emergency department and was found to have subarachnoid hemorrhage with accompanied by some vasogenic edema patient was sent to [facility] hospital there he was treated and sent to local half-way on 06/21/20, patient presented again to the emergency department on 06/23/20 and was transferred back to the [facility] and from there he was again discharged to local half-way for rehab, today patient was sent to emergency department the shortness of breath, upon EMS arrival patient was hypoxic and hypotensive, patient was on BiPAP and was given IV bolus upon arrival to emergency department his blood pressure was 74/38 and patient was given 30ml/kg bolus which did improve his symptoms, while at [facility] patient was diagnosed with COVID-19 and treated with Decadron and remdesivir, suspect the patient still has a lingering effect COVID-19 resulting in respiratory distress he is currently on BiPAP and unable to provide any history review of symptom, plan is to continue BiPAP and wean the patient off to nasal cannula, will continue to monitor patient and further recommendation to follow. 07/10 patient remains on BiPAP unable to wean the patient off consulted possum trapper suspect the patient has late phase of COVID-19 as well as pulmonary edema and pneumonia, his BiPAP was adjusted, antibiotics were changed from Unasyn to Rocephin and continue doxy and vancomycin, started patient on Solu-Medrol to 60 mg q.6, continue updraft and added Pulmicort, suggested patient will benefit from diuresing, patient is quite hypoxic on BiPAP unable to provide any review of symptoms. Will continue to monitor goal is to wean the patient off BiPAP to nasal cannula. (2) Pneumonia due to COVID-19 virus: Code(s): U07.1 - COVID-19; J12.82 - Pneumonia due to coronavirus disease 2019 Status: Acute Assessment and Plan: Plan is above (3) Acute on chronic renal failure: Qualifiers: Acute renal failure type: unspecified Chronic kidney disease stage: stage 3 (moderate) Chronic kidney disease stage 3 subtype: unspecified whether 3a or 3b Qualified Code(s): N17.9 - Acute kidney failure, unspecified; N18.30 - Chronic kidney disease, stage 3 unspecified Code(s): N17.9 - Acute kidney failure, unspecified; N18.9 - Chronic kidney disease, unspecified Status: Acute Assessment and Plan: Likely due to hypovolemia/hypotension. Will repeat BMP with a.m. labs. Monitor urine output closely. Will hold lisinopril and Lasix. (4) Hyperthyroidism: Code(s): E05.90 - Thyrotoxicosis, unspecified without thyrotoxic crisis or storm Status: Inactive Assessment and Plan: Will check TSH and continue PTU. (5) Atrial fibrillation: Code(s): I48.91 - Unspecified atrial fibrillation Status: Inactive Assessment and Plan: Continue digoxin, amiodarone and Cardizem. Subjective Date/time seen: 07/10/20 14:26 Interval history: Patient is 74-year-old male initially patient was seen on 06/15/20 after he had fell from stairs while on Xarelto and presented emergency department and was found to have subarachnoid hemorrhage with accompanied by some vasogenic edema patient was sent to [facility] hospital there he was treated and sent to local half-way on 06/21/20, patient presented again to the emergency department on 06/23/20 and was transferred back to the [facility] and from there he was again discharged to local half-way for rehab, today patient was sent to emergency department the shortness of breath, upon EMS arrival patient was hypoxic and hypotensive, patient was on BiPAP and was given IV bolus upon arrival to emergency department his blo
[2020-07-10 14:54] LABS: Anion Gap 6 mmol/L (8-16); Blood Urea Nitrogen 11 mg/dL (9-20); Calcium 7.9 mg/dL (8.4-10.2); Carbon Dioxide 27 mmol/L (22-30); Chloride 109 mmol/L (98-107); Estimated CRCL calculation 76 ml/min; Estimated Glomerular Filt Rate > 60; Glucose 152 mg/dL (75-110); Magnesium 1.9 mg/dL (1.6-2.3); Potassium 4.1 mmol/L (3.4-5.0); Sodium 142 mmol/L (137-145)
[2020-07-10] MEDS: ALBUTEROL SULFATE NEB 2.5 MG/0.5 ML INH INHALATION ×2 (14:58→20:50)
--- NOTE | 2020-07-10 16:29 | ECG_ITS ---
Measurements Intervals [place] Rate: 154 P: [place]: 0 QRS: 84 QRSD: 130 T: -21 QT: 258 QTc: 414 Interpretive Statements ATRIAL FIBRILLATION WITH RAPID VENTRICULAR RESPONSE RIGHT BUNDLE BRANCH BLOCK BORDERLINE ST-T WAVE ABNORMALITY- INFERIOR LEADS BASELINE ARTIFACT- II, III ABNORMAL ECG Electronically Signed On 07-11-2020 7:09:20 WALLET ASSEMBLER by Harry Brown D.O.
[2020-07-10] MEDS: AMIODARONE 360 MG/D5W 200 ML 360 MG/200 ML BAG 33.33 MG IV CONT (16:47)
[2020-07-10] MEDS: AMIODARONE 150 MG/D5W 100 ML 150 MG/100 ML BAG 600 MG IV CONT (16:47)
--- NOTE | 2020-07-10 17:11 | PM.CNCAR ---
Assessment and Plan Assessment and plan (1) Paroxysmal atrial fibrillation: Code(s): I48.0 - Paroxysmal atrial fibrillation Status: Acute Assessment and Plan: History of paroxysmal AFib, went into AFib RVR today, responded nicely to IV bolus of amiodarone. Will continue amiodarone IV overnight and switch back to oral amiodarone probably at a higher dose, as well as his digoxin and diltiazem. Check a digoxin level. Obviously with recent SAH we will not anticoagulate now for his atrial fibrillation. (2) Pneumonia due to COVID-19 virus: Code(s): U07.1 - COVID-19; J12.82 - Pneumonia due to coronavirus disease 2018 Status: Acute Assessment and Plan: Pneumonia and respiratory failure secondary to COVID-19 virus, on CPAP. (3) CHF (congestive heart failure): Code(s): I50.9 - Heart failure, unspecified Status: Acute Assessment and Plan: History of CHF, not well-documented. Modest elevation of proBNP. Does not appear volume overloaded. IV fluids at 75 cc an hour. Will follow. (4) Subarachnoid hemorrhage: Code(s): I60.9 - Nontraumatic subarachnoid hemorrhage, unspecified Status: Inactive Assessment and Plan: Brief neuro exam was favorable. (5) Coronary artery disease: Code(s): I25.10 - Atherosclerotic heart disease of [place] coronary artery without angina pectoris Status: Inactive Assessment and Plan: History of CAD, not well documented, stable. History of Present Illness History of Present Illness Consult date/time: 07/10/20 17:11 Requesting physician: Alice Graham MD Consult reason: atrial fibrillation Reason For Visit: COVID 19 pneumonia/respiratory failure Narrative: Date of service: 07/10/2020 Mr. Maria T Rivas is a 74-year-old male whom I was asked to see at the request of Dr. Graham for my advice and opinion regarding his AFib RVR, in consultation. The patient had been on Xarelto but fell down stairs on 06/15/2020 and suffered a subarachnoid hemorrhage. He was hospitalized at [facility] where he was diagnosed with COVID-19 pneumonia. He was transferred to a intermediate but had increasing shortness of breath and was admitted to [facility] on July 08, tachypneic, hypotensive and hypoxic. He was started on BiPAP in the emergency room and is doing better. However he went into atrial fibrillation with a rapid ventricular response today. He was given an amiodarone bolus and started on a drip, and has converted to sinus rhythm/sinus tachycardia. He denies any chest pain but does complain of shortness of breath. Mr. Rivas has apparently a history of atrial fibrillation, and he takes amiodarone, digoxin and diltiazem. Records in [facility] reviewed. PAF since 2018, previously on Eliquis. Echo 08/2018: EF 79% a dilated RV, biatrial enlargement, mild TR, RVSP 45 mmHg. H/O LE bypass. EMR notes a history of congestive heart failure and CAD (I can not find good documentation of the CHF and CAD). No records to review in Care Everywhere. Review of Systems Review of Systems: Narrative: The review of systems was very difficult to obtain as the patient is on BiPAP and tachypneic. Some of the review of systems was obtained from his nurse as well as the chart. ROS unobtainable: Yes unobtainable due to medical condition Constitutional: Constitutional: Reports fatigue and Reports weakness ENT: Denies epistaxis Cardiovascular: Cardiovascular: Denies chest pain, Denies pedal edema, Denies lightheadedness and Denies palpitations Respiratory: Respiratory: Reports cough, Reports dyspnea, Reports dyspnea on exertion and Denies wheezing Gastrointestinal: Gastrointestinal: Denies abdominal pain and Denies hematochezia Genitourinary:
[2020-07-10] MEDS: ACETAMINOPHEN 325 MG TABLET 650 MG PO (17:12)
[2020-07-10 19:13] LABS: Vancomycin Trough 9.7 ug/mL (10.0-20.0)
[2020-07-10] MEDS: BUDESONIDE RESPULE NEB 0.5 MG/2 ML AMP INHALATION (20:50)
[2020-07-10] MEDS: AMIODARONE 360 MG/D5W 200 ML 360 MG/200 ML BAG 16.67 MG IV CONT (21:13)
[2020-07-11] VITALS (22 sets, daily range): BP systolic 107–130; BP diastolic 41–55; PULSE 66–105; RESP 20–33; TEMP 36.2–36.8; O2SAT 90–97
--- NOTE | 2020-07-11 | ECHO_ITS ---
Patient Info Name: Leandro Rivas Age: 74 years : 1945 Gender: Male Ht: 67 in Wt: 160 lbs BSA: 1.86 m2 HR: 85 bpm BP: 115 / 90 mmHg Heart Rhythm: Sinus Rhythm Technical Quality: Good Exam Date: 07/11/2020 10:53 AM Exam Location: [facility] Patient Status: Inpatient Admit Date: 07/08/2020 Staff Ordering Physician: Thalia Francis MD Switch Engineer: Marquis Salvador, JMCS, RT Attending Provider: Alice Graham MD Referring Physician: Tito COOPER; Exam Type: CA echo doppler color flow Study Info Indications I50.9 - Heart failure, unspecified Complete two-dimensional, color flow and Doppler transthoracic echocardiogram is performed. Summary 1. Complete two-dimensional, color flow and Doppler transthoracic echocardiogram is performed. 2. Normal left ventricular systolic and diastolic function. 3. Very modestly sclerotic aortic valve which is nonstenotic. 4. Trace amount of mitral regurgitation. Left Ventricle Left ventricular chamber dimension is normal. Left ventricular systolic function is normal, estimated at 60-65%. The left ventricular diastolic function is normal. Right Ventricle Right ventricular chamber dimension is normal. Left Atria Left atrial chamber dimension is normal. Right Atria Right atrial chamber dimension is normal. Aortic Valve The aortic valve is trileaflet. There is mild aortic valve sclerosis. Pulmonic Valve The pulmonic valve is normal. Mitral Valve The mitral valve has normal leaflets. There is trace mitral valve regurgitation. Tricuspid Valve The tricuspid valve leaflets are not well visualized. There is mild tricuspid valve regurgitation. Pericardium/Pleural The pericardium appears normal. Aorta The aortic root size at the sinus of Valsalva is normal. Left Ventricular Outflow Tract Name Value Normal LVOT 2D LVOT Diameter 1.9 cm LVOT Doppler LVOT Peak Gradient 5 mmHg LVOT Mean Gradient 2 mmHg LVOT VTI 23 cm LVOT VTI/AV VTI Ratio 0.8 LVOT Stroke Volume 63 ml LVOT CO 4.1 l/min LVOT CI 2.2 l/min/m2 Mitral Valve Name Value Normal MV Doppler MV Decel [place] 438 cm/s2 MV PHT 56 ms MV Area (PHT) 3.9 cm2 4.0-5.0 MV Diastolic Function MV E Peak Velocity 84 cm/s MV A Peak Velocity 76 cm/s MV E/A 1.1 MV Decel Time 192 ms MV Annular TDI
[2020-07-11] MEDS: methylPREDNISolone SOD SUCC 125 MG VIAL 60 MG IV PUSH ×4 (01:28→17:33)
[2020-07-11] MEDS: IPRATROPIUM BR 0.02% INH SOLN 0.5 MG/2.5 ML VIAL INHALATION ×4 (02:11→21:32)
[2020-07-11] MEDS: ALBUTEROL SULFATE NEB 2.5 MG/0.5 ML INH INHALATION ×2 (02:11→08:56)
[2020-07-11 05:22] LABS: Hematocrit 26.9 % (42.0-52.0); Mean Corpuscular HGB Conc 29.7 g/dl (32-36); Mean Corpuscular Hemoglobin 25.6 pg (26-34); Mean Corpuscular Volume 85.9 fl (80-100); Mean Platelet Volume 9.9 fl (7.4-10.4); Platelet Count Result 161 k/mm3 (150-375); Red Blood Count 3.13 M/mm3 (4.6-6.20); Red Cell Distribution Width 18.8 % (11.5-14.5); White Blood Count 5.5 K/mm3 (4.5-10.0)
[2020-07-11 05:36] LABS: Anion Gap 4 mmol/L (8-16); Blood Urea Nitrogen 14 mg/dL (9-20); Calcium 7.8 mg/dL (8.4-10.2); Carbon Dioxide 32 mmol/L (22-30); Chloride 104 mmol/L (98-107); Estimated CRCL calculation 76 ml/min; Estimated Glomerular Filt Rate > 60; Glucose 173 mg/dL (75-110); Magnesium 1.6 mg/dL (1.6-2.3); Potassium 3.4 mmol/L (3.4-5.0); Sodium 140 mmol/L (137-145)
[2020-07-11 06:29] LABS: Digoxin < 0.4 ng/mL (0.8-2.0)
[2020-07-11] MEDS: BUDESONIDE RESPULE NEB 0.5 MG/2 ML AMP INHALATION ×2 (09:01→21:31)
[2020-07-11] MEDS: PANTOPRAZOLE 40 MG TABLET PO (09:16)
[2020-07-11] MEDS: DIGOXIN TAB 125 MCG TABLET PO (09:16)
[2020-07-11] MEDS: FINASTERIDE 5 MG TABLET PO (09:16)
[2020-07-11] MEDS: TAMSULOSIN HCL 0.4 MG CAPSULE PO (09:16)
[2020-07-11] MEDS: CHOLECALCIFEROL 1,000 UNITS TABLET 1000 UNITS PO (09:16)
[2020-07-11] MEDS: ISOSORBIDE MONONITRATE 30 MG TAB.ER.24H PO (09:16)
[2020-07-11] MEDS: MAGNESIUM OXIDE 400 MG TABLET PO (09:16)
[2020-07-11] MEDS: FERROUS SULFATE 324 MG TABLET PO (09:16)
[2020-07-11] MEDS: guaiFENesin 12 HR 600 MG TABCR PO ×2 (09:16→21:18)
[2020-07-11] MEDS: AMIODARONE HCL 200 MG TABLET PO (09:17)
[2020-07-11] MEDS: SENNOSIDES 8.6 MG TABLET BY MOUTH (09:17)
[2020-07-11] MEDS: propylthiouraciL 50 MG TABLET PO ×3 (09:17→17:32)
[2020-07-11] MEDS: LIDOCAINE 5% PATCH 1 PATCH TOPICAL (09:18)
[2020-07-11] MEDS: polyethylene glycoL 3350 17 GM POWD.PACK PO (09:18)
--- NOTE | 2020-07-11 11:25 | PM.PNCARD ---
Progress Note: A&P Assessment and Plan (1) Paroxysmal atrial fibrillation: Code(s): I48.0 - Paroxysmal atrial fibrillation Status: Acute Assessment and Plan: History of paroxysmal AFib, WillDC IV amiodarone. resume oral amiodarone. Obviously with recent SAH we will not anticoagulate now for his atrial fibrillation. (2) Pneumonia due to COVID-19 virus: Code(s): U07.1 - COVID-19; J12.82 - Pneumonia due to coronavirus disease 2018 Status: Acute Assessment and Plan: Pneumonia and respiratory failure secondary to COVID-19 virus, on CPAP. (3) CHF (congestive heart failure): Code(s): I50.9 - Heart failure, unspecified Status: Acute Assessment and Plan: History of CHF, not well-documented. Modest elevation of proBNP. Does not appear volume overloaded. IV fluids at 75 cc an hour. Will follow. (4) Subarachnoid hemorrhage: Code(s): I60.9 - Nontraumatic subarachnoid hemorrhage, unspecified Status: Inactive Assessment and Plan: Brief neuro exam was favorable. (5) Coronary artery disease: Code(s): I25.10 - Atherosclerotic heart disease of [place] coronary artery without angina pectoris Status: Inactive Assessment and Plan: History of CAD, not well documented, stable. Subjective Date/time seen: 07/11/20 11:25 Interval history: Patient is 74-year-old male initially patient was seen on 06/15/20 after he had fell from stairs while on Xarelto and presented emergency department and was found to have subarachnoid hemorrhage with accompanied by some vasogenic edema patient was sent to [facility] there he was treated and sent to local assisted on 06/21/20, patient presented again to the emergency department on 06/23/20 and was transferred back to the [facility] and from there he was again discharged to local assisted for rehab, today patient was sent to emergency department the shortness of breath, upon EMS arrival patient was hypoxic and hypotensive, patient was on BiPAP and was given IV bolus upon arrival to emergency department his blood pressure was 74/38 and patient was given 30ml/kg bolus which did improve his symptoms, while at [facility] patient was diagnosed with COVID-19 and treated with Decadron and remdesivir, suspect the patient still has a lingering effect COVID-19 resulting in respiratory distress he is currently on BiPAP and unable to provide any history review of symptom, plan is to continue BiPAP and wean the patient off to nasal cannula, will continue to monitor patient and further recommendation to follow. 07/111patient remains on BiPAP Obviously still short of breath but no chest pain. In sinus rhythm frequent PACs Review of Systems Review of Systems: ROS unobtainable: Yes unobtainable due to medical condition Constitutional: Constitutional: Reports fatigue and Reports weakness ENT: Denies epistaxis and Denies neck pain Cardiovascular: Cardiovascular: Denies chest pain, Denies pedal edema, Denies lightheadedness, Denies palpitations, Reports dyspnea and Reports dyspnea on exertion Respiratory: Respiratory: Reports cough, Reports dyspnea, Reports dyspnea on exertion and Denies wheezing Gastrointestinal: Gastrointestinal: Denies abdominal pain and Denies hematochezia Genitourinary: Genitourinary: Denies hematuria Musculoskeletal: Musculoskeletal: Denies back pain and Denies neck pain Integumentary/Breasts: Skin/Breast: Denies rash Neurologic: Reports system reviewed and no additional complaints, except as documented and Reports weakness Psychiatric: Psychiatric: Reports no additional psychiatric complaints Endocrine: Endocrine: Reports fatigue and Denies palpitations Allergic/Immunologic: Allergic/Immunolog
[2020-07-11] MEDS: POTASSIUM CHLORIDE 20 MEQ TABLET 40 MEQ PO (11:31)
[2020-07-11] MEDS: acetaZOLAMIDE TAB 250 MG TABLET 500 MG PO ×2 (11:32→17:36)
[2020-07-11] MEDS: FUROSEMIDE INJ 40 MG/4 ML VIAL 20 MG IV PUSH (11:33)
--- NOTE | 2020-07-11 13:36 | PM.PNPUL ---
Progress Note: A&P Assessment and Plan (1) Acute respiratory failure with hypoxia: Code(s): J96.01 - Acute respiratory failure with hypoxia Status: Acute (2) CHF (congestive heart failure): Code(s): I50.9 - Heart failure, unspecified Status: Acute Assessment and Plan: CXR has not greatly improved but he looks clinically better today compared to yesterday - continue diuretics as needed, maintaining negative balance - f/u in Echo results. - continue systemic steroids and current nebulized regimen - continue DVT prophylaxis - CPAP 8 cm H20 as needed alternating with high flow oxygen to keep sats 92-96% (3) Pneumonia due to COVID-19 virus: Code(s): U07.1 - COVID-19; J12.82 - Pneumonia due to coronavirus disease 2019 Status: Acute Subjective Date/time seen: 07/11/20 13:36 Interval history: Feeling better today has been off of BiPAP for a few hours since this morning and is on a non-rebreather face mask but he does not appear to be in any respiratory distress and does not appear to be labored as he did yesterday. Review of Systems Review of Systems: All systems reviewed & are unremarkable except as noted in HPI and below Objective Data Vital Signs Vital Signs: Vital Signs - 24 hr 07/10/20 13:39 07/10/20 15:05 07/10/20 15:06 Temperature Pulse Rate 107 H 103 H 103 H Respiratory Rate 49 H 49 H Blood Pressure Pulse Oximetry 97 07/10/20 15:08 07/10/20 16:00 07/10/20 16:47 Temperature 36.7 C Pulse Rate 108 H 160 H Respiratory Rate 445 H Blood Pressure 125/55 L 105/65 Pulse Oximetry 96 94 07/10/20 17:40 07/10/20 20:00 07/10/20 20:50 Temperature 36.4 C Pulse Rate 94 95 111 H Respiratory Rate 35 H 35 H Blood Pressure 105/67 Pulse Oximetry 96 96 07/10/20 21:13 07/10/20 22:00 07/10/20 23:55 Temperature 36.6 C Pulse Rate 111 H 98 99 Respiratory Rate 20 Blood Pressure 124/56 L Pulse Oximetry 97 07/11/20 00:00 07/11/20 02:00 07/11/20 02:11 Temperature Pulse Rate 95 82 105 H Respiratory Rate 20 33 H Blood Pressure Pulse Oximetry 97 07/11/20 04:00 07/11/20 06:00 07/11/20 08:00 Temperature 36.6 C 36.2 C L Pulse Rate 79 75 73 Respiratory Rate 20 26 H Blood Pressure 115/50 L 124/44 L Pulse Oximetry 93 95 07/11/20 09:16 07/11/20 09:17 07/11/20 12:00 Temperature 36.2 C L Pulse Rate 88 88 83 Respiratory Rate 31 H Blood Pressure 122/51 L Pulse Oximetry 92 Intake/Output Intake/Output: Intake & Output 07/08/20 07/09/20 07/10/20 07/11/20 23:59 23:59 23:59 23:59 Intake Total 2460 2890 2650 910 Output Total 501 753 7718 1100 Balance 2260 2215 950 -190 Meds/Results Medications: Active Medications Generic Name Dose Route Start Last Admin Trade Name Freq PRN Reason Stop Dose Admin Acetaminophen 650 mg 07/09/20 04:48 07/10/20 17:12 Acetaminophen 325 Mg Tablet PO 650 mg Q4H PRN Administration Mild Pain (1-3) or Fever Acetazolamide 500 mg 07/11/20 09:15 07/11/20 11:32 Acetazolamide Tab 250 Mg Tablet PO 07/13/20 09:16 500 mg BID DAVID Administration Alprazolam 0.25 mg 07/10/20 12:18 07/10/20 12:32 Alprazolam (*Crx) 0.25 Mg Tablet PO 0.25 mg Q8HR PRN Administration Anxiety Amiodarone HCl 200 mg 07/09/20 08:00 07/11/20 09:17 Amiodarone Hcl 200 Mg Tablet PO 200 mg DAILY@0800 DAVID Administration Budesonide 0.5 mg 07/10/20 20:00 07/11/20 09:01 Budesonide Respule Neb 0.5 Mg/2 Ml Amp INHALATION 0.5 mg Q12HRT DAVID Administration Digoxin 125 mcg 07/09/20 09:00 07/11/20 09:16 Digoxin Tab 125 Mcg Tablet PO 125 mcg DAILY DAVID Administration Diltiazem HCl 120 mg 07/09/20 09:00 07/11/20 09:17 Diltiazem Hcl Cd 120 Mg Cap.Sa.24h PO 120 mg DAILY DAVID Administration Ferrous Sulfate 324 mg 07/09/20 08:00 07/11/20 09:16 Ferrous Sulfate 324 Mg Tablet PO 324 mg DAILY@0800 DAVID Administration Finasteride 5 mg 07/09
[2020-07-11] MEDS: KCL 20 MEQ/SW 100 ML 100 ML 50 MEQ IVPB (13:40)
--- NOTE | 2020-07-11 16:37 | PM.IMPN ---
Progress Note: A&P Assessment and Plan (1) Acute respiratory failure with hypoxia: Code(s): J96.01 - Acute respiratory failure with hypoxia Status: Acute Assessment and Plan: 07/11/20 16:37 Patient is 74-year-old male initially patient was seen on 06/15/20 after he had fell from stairs while on Xarelto and presented emergency department and was found to have subarachnoid hemorrhage with accompanied by some vasogenic edema patient was sent to [facility] hospital there he was treated and sent to local detention on 06/21/20, patient presented again to the emergency department on 06/23/20 and was transferred back to the [facility] and from there he was again discharged to local [facility] for rehab, today patient was sent to emergency department the shortness of breath, upon EMS arrival patient was hypoxic and hypotensive, patient was on BiPAP and was given IV bolus upon arrival to emergency department his blood pressure was 74/38 and patient was given 30ml/kg bolus which did improve his symptoms, while at [facility] patient was diagnosed with COVID-19 and treated with Decadron and remdesivir, suspect the patient still has a lingering effect COVID-19 resulting in respiratory distress he is currently on BiPAP and unable to provide any history review of symptom, plan is to continue BiPAP and wean the patient off to nasal cannula, will continue to monitor patient and further recommendation to follow. 07/10 patient remains on BiPAP unable to wean the patient off consulted beater out suspect the patient has late phase of COVID-19 as well as pulmonary edema and pneumonia, his BiPAP was adjusted, antibiotics were changed from Unasyn to Rocephin and continue doxy and vancomycin, started patient on Solu-Medrol to 60 mg q.6, continue updraft and added Pulmicort, suggested patient will benefit from diuresing, patient is quite hypoxic on BiPAP unable to provide any review of symptoms. Will continue to monitor goal is to wean the patient off BiPAP to nasal cannula. 07/11 patient with history of proximal atrial fibrillation on oral amiodarone however last night patient went into atrial fibrillation with RVR patient was seen by Cardiology started the patient on amiodarone drip this bring his heart rate under control and today patient was seen by work car operator again and stop the amnio drip and continue his oral amiodarone patient is clinically stable, unable to anticoagulate patient due to subarachnoid hemorrhage, today patient is off BiPAP and on high-flow nasal cannula seen by pulmonology recommending continue IV steroid and updraft, patient states is feeling much better today not a short of breath denies any fever or chills (2) Pneumonia due to COVID-19 virus: Code(s): U07.1 - COVID-19; J12.82 - Pneumonia due to coronavirus disease 2019 Status: Acute Assessment and Plan: Plan is above (3) Acute on chronic renal failure: Qualifiers: Acute renal failure type: unspecified Chronic kidney disease stage: stage 3 (moderate) Chronic kidney disease stage 3 subtype: unspecified whether 3a or 3b Qualified Code(s): N17.9 - Acute kidney failure, unspecified; N18.30 - Chronic kidney disease, stage 3 unspecified Code(s): N17.9 - Acute kidney failure, unspecified; N18.9 - Chronic kidney disease, unspecified Status: Acute Assessment and Plan: Likely due to hypovolemia/hypotension. Will repeat BMP with a.m. labs. Monitor urine output closely. Will hold lisinopril and Lasix. (4) Hyperthyroidism: Code(s): E05.90 - Thyrotoxicosis, unspecified without thyrotoxic crisis or storm Status: Inactive Assessment and Plan: Will check TSH and continue PTU. (5) Atrial fibrillation: Code(s): I48.91 - Unspecified atrial fibrillation Status: Inactive Assessment and Plan: Continue digoxin, amiodarone and Cardizem. Subjective Date/time seen: 07/11/20 16:37 Patient is 74-year-old male initially patien
[2020-07-12] VITALS (21 sets, daily range): BP systolic 117–137; BP diastolic 48–72; PULSE 64–119; RESP 20–42; TEMP 36.3–36.6; O2SAT 89–100
[2020-07-12] MEDS: methylPREDNISolone SOD SUCC 125 MG VIAL 60 MG IV PUSH ×4 (00:45→18:13)
[2020-07-12] MEDS: IPRATROPIUM BR 0.02% INH SOLN 0.5 MG/2.5 ML VIAL INHALATION ×4 (02:47→22:36)
[2020-07-12] MEDS: ALPRAZolam (*CRX) 0.25 MG TABLET PO (04:34)
[2020-07-12 08:36] LABS: Hematocrit 28.8 % (42.0-52.0); Hemoglobin 8.5 g/dL (14.0-18.0); Mean Corpuscular HGB Conc 29.5 g/dl (32-36); Mean Corpuscular Hemoglobin 25.4 pg (26-34); Mean Corpuscular Volume 86.2 fl (80-100); Mean Platelet Volume 10.6 fl (7.4-10.4); Platelet Count Result 181 k/mm3 (150-375); Red Blood Count 3.34 M/mm3 (4.6-6.20); Red Cell Distribution Width 18.8 % (11.5-14.5); White Blood Count 6.8 K/mm3 (4.5-10.0)
[2020-07-12 09:00] LABS: Vancomycin Trough 14.5 ug/mL (10.0-20.0)
[2020-07-12] MEDS: acetaZOLAMIDE TAB 250 MG TABLET 500 MG PO ×2 (09:13→18:14)
[2020-07-12] MEDS: propylthiouraciL 50 MG TABLET PO ×3 (09:13→18:14)
[2020-07-12] MEDS: PANTOPRAZOLE 40 MG TABLET PO (09:14)
[2020-07-12] MEDS: FINASTERIDE 5 MG TABLET PO (09:14)
[2020-07-12] MEDS: DIGOXIN TAB 125 MCG TABLET PO (09:14)
[2020-07-12] MEDS: ISOSORBIDE MONONITRATE 30 MG TAB.ER.24H PO (09:14)
[2020-07-12] MEDS: FERROUS SULFATE 324 MG TABLET PO (09:14)
[2020-07-12] MEDS: MAGNESIUM OXIDE 400 MG TABLET PO (09:14)
[2020-07-12] MEDS: SENNOSIDES 8.6 MG TABLET BY MOUTH (09:15)
[2020-07-12] MEDS: AMIODARONE HCL 200 MG TABLET PO (09:15)
[2020-07-12] MEDS: CHOLECALCIFEROL 1,000 UNITS TABLET 1000 UNITS PO (09:15)
[2020-07-12] MEDS: BUDESONIDE RESPULE NEB 0.5 MG/2 ML AMP INHALATION ×2 (09:16→22:36)
[2020-07-12] MEDS: TAMSULOSIN HCL 0.4 MG CAPSULE PO (09:16)
[2020-07-12] MEDS: guaiFENesin 12 HR 600 MG TABCR PO ×2 (09:16→20:49)
[2020-07-12] MEDS: LIDOCAINE 5% PATCH 1 PATCH TOPICAL (09:17)
[2020-07-12 09:59] LABS: Anion Gap 6 mmol/L (8-16); Blood Urea Nitrogen 20 mg/dL (9-20); Calcium 8.6 mg/dL (8.4-10.2); Carbon Dioxide 27 mmol/L (22-30); Chloride 106 mmol/L (98-107); Estimated CRCL calculation 60 ml/min; Estimated Glomerular Filt Rate > 60; Glucose 159 mg/dL (75-110); Magnesium 1.5 mg/dL (1.6-2.3); Potassium 3.4 mmol/L (3.4-5.0); Sodium 139 mmol/L (137-145)
[2020-07-12] MEDS: LIDOCAINE HCL 1% PF INJ 5 ML VIAL INFILTRATE (12:15)
--- NOTE | 2020-07-12 13:16 | PM.PNPUL ---
Progress Note: A&P Assessment and Plan (1) Acute respiratory failure with hypoxia: Code(s): J96.01 - Acute respiratory failure with hypoxia Status: Acute Assessment and Plan: Prone position is required during the day as much as possible to improve outcome with CPAP at night (2) CHF (congestive heart failure): Code(s): I50.9 - Heart failure, unspecified Status: Acute Assessment and Plan: CXR has not greatly improved but he looks clinically better today compared to yesterday - continue diuretics as needed, maintaining negative balance - f/u in Echo results. - continue systemic steroids and current nebulized regimen - continue DVT prophylaxis - CPAP 8 cm H20 as needed alternating with high flow oxygen to keep sats 92-96% (3) Pneumonia due to COVID-19 virus: Code(s): U07.1 - COVID-19; J12.82 - Pneumonia due to coronavirus disease 2018 Status: Acute Subjective Date/time seen: 07/12/20 13:16 Interval history: He has not improved significantly. An extra dose of Lasix 20 mg IV x1 was given this morning. He is still requiring high doses of oxygen during the day and CPAP at night. The patient needs to try prone positioning while awake during the day and I did speak to him about this. This may improve his oxygenation and may also improve his outcome otherwise his outlook is quite poor. Review of Systems Review of Systems: All systems reviewed & are unremarkable except as noted in HPI and below Exam Const: General: cooperative, healthy appearing, alert, awake, Physically active, uncomfortable and other (acute respiratory distress) Nutritional Appearance: average body habitus Orientation/consciousness: oriented to person, oriented to place, oriented to time and patient oriented x3 HENMT: Head: normal to inspection, normocephalic and atraumatic Eyes: General: appearance normal, both eyes and all related structures Neck: Neck: trachea midline and supple Resp: Effort & Inspection: labored and respiratory distress Cardio: Jugular venous distension: no JVD Rate: regular rate Rhythm: regular rhythm Heart sounds: S1 normal heart sound present, S2 normal heart sound present, Murmur heart sound present and Rub heart sound present GI: Inspection: normal to inspection Auscultation: normal bowel sounds Skin: General skin exam: normal color and no rashes or lesions noted Neuro: General: oriented to person, oriented to place, oriented to time and patient oriented x3 Cognition (Neuro): normal cognition Speech: normal speech Extrem: General: normal to inspection, capillary refill normal and no clubbing, cyanosis or edema Psych: Appearance: grossly normal and well kempt Mental Status: mental status grossly normal Objective Data Vital Signs Vital Signs: Vital Signs - 24 hr 07/11/20 14:00 07/11/20 15:30 07/11/20 15:42 Temperature Pulse Rate 85 83 84 Respiratory Rate 24 H 24 H Blood Pressure Pulse Oximetry 91 07/11/20 16:00 07/11/20 18:00 07/11/20 20:00 Temperature 36.3 C L 36.8 C Pulse Rate 95 91 93 Respiratory Rate 22 H 22 H Blood Pressure 107/41 L 115/44 L Pulse Oximetry 91 93 07/11/20 21:40 07/11/20 21:59 07/11/20 22:00 Temperature Pulse Rate 79 80 92 Respiratory Rate 20 20 Blood Pressure Pulse Oximetry 94 07/11/20 23:22 07/12/20 00:00 07/12/20 02:00 Temperature 36.4 C Pulse Rate 87 85 85 Respiratory Rate 22 H 22 H Blood Pressure 130/55 L Pulse Oximetry 94 94 07/12/20 02:48 07/12/20 03:01 07/12/20 04:00 Temperature 36.5 C Pulse Rate 74 74 92 Respiratory Rate 30 H 30 H 20 Blood Pressure 126/53 L Pulse Oximetry 93 92 07/12/20 06:00 07/12/20 08:00 07/12/20 10:00 Temperature 36.3 C L Pulse Rate 73 70 92 Respiratory Rate 42 H Blood Pressure 136/72 Pulse Oximetry 94 Intake/Output Intake/Output: Intake & Output 07/09/20 07/10/20 07/11/20 07/12/20 23:59 23:59 23:59 23:59 Intake Total 289
[2020-07-12] MEDS: FUROSEMIDE INJ 40 MG/4 ML VIAL 20 MG IV PUSH ×2 (13:31→18:13)
[2020-07-12] MEDS: KCL 20 MEQ/SW 100 ML 100 ML 50 MEQ IVPB (13:33)
[2020-07-12] MEDS: CENTRAL LINE FLUSH 10 ML IV PUSH ×2 (13:34→20:50)
--- NOTE | 2020-07-12 13:41 | PM.PNCARD ---
Progress Note: A&P Additional Plan 74 WM with PAFib . Cont PO amiodarone to provide rhythm control . NOT an anticoagulation candidate . No additional cardiac recc's today [facility]d [facility] Subjective Date/time seen: 07/12/20 13:41 Interval history: Patient is 74-year-old male initially patient was seen on 06/15/20 after he had fell from stairs while on Xarelto and presented emergency department and was found to have subarachnoid hemorrhage with accompanied by some vasogenic edema patient was sent to [facility] there he was treated and sent to local halfway on 06/21/20, patient presented again to the emergency department on 06/23/20 and was transferred back to the [facility] and from there he was again discharged to local halfway for rehab, today patient was sent to emergency department the shortness of breath, upon EMS arrival patient was hypoxic and hypotensive, patient was on BiPAP and was given IV bolus upon arrival to emergency department his blood pressure was 74/38 and patient was given 30ml/kg bolus which did improve his symptoms, while at [facility] patient was diagnosed with COVID-19 and treated with Decadron and remdesivir, suspect the patient still has a lingering effect COVID-19 resulting in respiratory distress he is currently on BiPAP and unable to provide any history review of symptom, plan is to continue BiPAP and wean the patient off to nasal cannula, will continue to monitor patient and further recommendation to follow. 07/111patient remains on BiPAP Obviously still short of breath but no chest pain. In sinus rhythm frequent PACs 07/12/20: Maintaining NSR on telemetry on PO Amiodarone Exam Narrative: Exam Narrative: Ill-appearing tachypneic older male on BiPAP, 70% FiO2, does not appear to be in pain. Const: General: uncomfortable HENMT: General nose exam: no epistaxis Eyes: EOM: EOMs intact bilaterally Neck: Neck: supple Thyroid: abnormal thyroid Carotids: no bruits Lymphatic: lymphadenopathy not noted Resp: Effort & Inspection: abnormal respiratory effort Auscultation: no rales, no rhonchi and diminished lung sounds Cardio: Rate: regular rate and tachycardic Heart sounds: no murmurs Other: Good pedal pulses. GI: Inspection: non-distended Skin: General skin exam: normal color and no rashes or lesions noted Neuro: Cognition (Neuro): abnormal cognition Speech: normal speech Other: Patient had good upper extremity strength bilaterally. He is oriented to June, and present Biden but thought he was still at [facility]. Extrem: General: no edema and no pedal edema Psych: Mental Status: mental status grossly normal Affect: normal affect Objective Data Vital Signs Vital Signs: Vital Signs - 24 hr 07/11/20 14:00 07/11/20 15:30 07/11/20 15:42 Temperature Pulse Rate 85 83 84 Respiratory Rate 24 H 24 H Blood Pressure Pulse Oximetry 91 07/11/20 16:00 07/11/20 18:00 07/11/20 20:00 Temperature 36.3 C L 36.8 C Pulse Rate 95 91 93 Respiratory Rate 22 H 22 H Blood Pressure 107/41 L 115/44 L Pulse Oximetry 91 93 07/11/20 21:40 07/11/20 21:59 07/11/20 22:00 Temperature Pulse Rate 79 80 92 Respiratory Rate 20 20 Blood Pressure Pulse Oximetry 94 07/11/20 23:22 07/12/20 00:00 07/12/20 02:00 Temperature 36.4 C Pulse Rate 87 85 85 Respiratory Rate 22 H 22 H Blood Pressure 130/55 L Pulse Oximetry 94 94 07/12/20 02:48 07/12/20 03:01 07/12/20 04:00 Temperature 36.5 C Pulse Rate 74 74 92 Respiratory Rate 30 H 30 H 20 Blood Pressure 126/53 L Pulse Oximetry 93 92 07/12/20 06:00 07/12/20 08:00 07/12/20 10:00 Temperature 36.3 C L Pulse Rate 73 70 92 Respiratory Rate 42 H Blood Pressure 136/72 Pulse Oximetry 94 Intake/Output Intake/Output: Intake & Output 07/09/20 07/10/20 07/11/20 07/12/20 23:59 23:59 23:59 23:59 Intake Total 2890 2650 1670 100 Output Total 675 1700 1300 450 Ryan
[2020-07-12 13:55] LABS: Glucose Point of Care 140 (65-105)
[2020-07-12 16:46] LABS: Glucose Point of Care 178 (65-105)
--- NOTE | 2020-07-12 17:12 | PM.IMPN ---
Progress Note: A&P Assessment and Plan (1) Acute respiratory failure with hypoxia: Code(s): J96.01 - Acute respiratory failure with hypoxia Status: Acute Assessment and Plan: 07/12/20 17:12 Patient is 74-year-old male initially patient was seen on 06/15/20 after he had fell from stairs while on Xarelto and presented emergency department and was found to have subarachnoid hemorrhage with accompanied by some vasogenic edema patient was sent to [facility] hospital there he was treated and sent to local [facility] on 06/21/20, patient presented again to the emergency department on 06/23/20 and was transferred back to the [facility] and from there he was again discharged to local [facility] for rehab, today patient was sent to emergency department the shortness of breath, upon EMS arrival patient was hypoxic and hypotensive, patient was on BiPAP and was given IV bolus upon arrival to emergency department his blood pressure was 74/38 and patient was given 30ml/kg bolus which did improve his symptoms, while at [facility] patient was diagnosed with COVID-19 and treated with Decadron and remdesivir, suspect the patient still has a lingering effect COVID-19 resulting in respiratory distress he is currently on BiPAP and unable to provide any history review of symptom, plan is to continue BiPAP and wean the patient off to nasal cannula, will continue to monitor patient and further recommendation to follow. 07/10 patient remains on BiPAP unable to wean the patient off consulted public health specialist suspect the patient has late phase of COVID-19 as well as pulmonary edema and pneumonia, his BiPAP was adjusted, antibiotics were changed from Unasyn to Rocephin and continue doxy and vancomycin, started patient on Solu-Medrol to 60 mg q.6, continue updraft and added Pulmicort, suggested patient will benefit from diuresing, patient is quite hypoxic on BiPAP unable to provide any review of symptoms. Will continue to monitor goal is to wean the patient off BiPAP to nasal cannula. 07/11 patient with history of proximal atrial fibrillation on oral amiodarone however last night patient went into atrial fibrillation with RVR patient was seen by Cardiology started the patient on amiodarone drip this bring his heart rate under control and today patient was seen by designer again and stop the amnio drip and continue his oral amiodarone patient is clinically stable, unable to anticoagulate patient due to subarachnoid hemorrhage, today patient is off BiPAP and on high-flow nasal cannula seen by pulmonology recommending continue IV steroid and updraft, patient states is feeling much better today not a short of breath denies any fever or chills. 07/12 patient still is on BiPAP, patient with history of proximal atrial fibrillation went into RVR was started on amiodarone drip, now the rate is controlled was switch over to oral amiodarone seen by cardiology recommending continue present management, similarly patient seen by pulmonology patient clinically stable recommended the continue dexamethasone and updraft, patient states feeling little better, denies any fever or chill, he wants to eat ice cream I have spoken to nursing staff will try our best to get the patient ice cream however he gets short winded and we take him off the BiPAP. (2) Pneumonia due to COVID-19 virus: Code(s): U07.1 - COVID-19; J12.82 - Pneumonia due to coronavirus disease 2018 Status: Acute Assessment and Plan: Plan is above (3) Acute on chronic renal failure: Qualifiers: Acute renal failure type: unspecified Chronic kidney disease stage: stage 3 (moderate) Chronic kidney disease stage 3 subtype: unspecified whether 3a or 3b Qualified Code(s): N17.9 - Acute kidney failure, unspecified; N18.30 - Chronic kidney disease, stage 3 unspecified Code(s): N17.9 - Acute kidney failure, unspecified; N18.9 - Chronic kidney disease, unspecified Status: Acute Assessment and Plan: L
[2020-07-13] VITALS (21 sets, daily range): BP systolic 109–139; BP diastolic 51–97; PULSE 73–131; RESP 20–40; TEMP 36.2–36.7; O2SAT 43–98
[2020-07-13] MEDS: methylPREDNISolone SOD SUCC 125 MG VIAL 60 MG IV PUSH ×3 (00:32→11:59)
[2020-07-13] MEDS: IPRATROPIUM BR 0.02% INH SOLN 0.5 MG/2.5 ML VIAL INHALATION ×3 (02:10→14:31)
[2020-07-13] MEDS: CENTRAL LINE FLUSH 10 ML IV PUSH ×2 (05:21→22:21)
[2020-07-13 06:01] LABS: Anion Gap 6 mmol/L (8-16); Blood Urea Nitrogen 24 mg/dL (9-20); Calcium 8.1 mg/dL (8.4-10.2); Carbon Dioxide 29 mmol/L (22-30); Chloride 103 mmol/L (98-107); Estimated CRCL calculation 60 ml/min; Estimated Glomerular Filt Rate > 60; Glucose 164 mg/dL (75-110); Magnesium 1.4 mg/dL (1.6-2.3); Potassium 3.1 mmol/L (3.4-5.0); Sodium 138 mmol/L (137-145)
[2020-07-13] MEDS: BUDESONIDE RESPULE NEB 0.5 MG/2 ML AMP INHALATION (08:46)
--- NOTE | 2020-07-13 09:29 | PM.PNPUL ---
Progress Note: A&P Assessment and Plan (1) Acute respiratory failure with hypoxia: Code(s): J96.01 - Acute respiratory failure with hypoxia Status: Acute Assessment and Plan: Prone position is required during the day as much as possible to improve outcome with CPAP at night (2) CHF (congestive heart failure): Code(s): I50.9 - Heart failure, unspecified Status: Acute Assessment and Plan: CXR has not greatly improved but he looks clinically better today compared to yesterday - Echo was fairly normal but would continue use PRN diuretics 20 mg IV. - replace K and Mag today - continue systemic steroids and current nebulized regimen - continue DVT prophylaxis - CPAP 8 cm H20 as needed alternating with high flow oxygen to keep sats 92-96% (3) Pneumonia due to COVID-19 virus: Code(s): U07.1 - COVID-19; J12.82 - Pneumonia due to coronavirus disease 2019 Status: Acute Subjective Date/time seen: 07/13/20 09:29 Interval history: he continues to do poorly and is requiring very high doses of oxygen with a non-rebreather and high-flow oxygen at the same time period while wearing CPAP at night. He did not do prone positioning as I recommended yesterday. Review of Systems Review of Systems: All systems reviewed & are unremarkable except as noted in HPI and below Exam Const: General: cooperative, healthy appearing, alert, awake, Physically active, uncomfortable and other (acute respiratory distress) Nutritional Appearance: average body habitus Orientation/consciousness: oriented to person, oriented to place, oriented to time and patient oriented x3 HENMT: Head: normal to inspection, normocephalic and atraumatic Eyes: General: appearance normal, both eyes and all related structures Neck: Neck: trachea midline and supple Resp: Effort & Inspection: labored and respiratory distress Cardio: Jugular venous distension: no JVD Rate: regular rate Rhythm: regular rhythm Heart sounds: S1 normal heart sound present, S2 normal heart sound present, Murmur heart sound present and Rub heart sound present GI: Inspection: normal to inspection Auscultation: normal bowel sounds Skin: General skin exam: normal color and no rashes or lesions noted Neuro: General: oriented to person, oriented to place, oriented to time and patient oriented x3 Cognition (Neuro): normal cognition Speech: normal speech Extrem: General: normal to inspection, capillary refill normal and no clubbing, cyanosis or edema Psych: Appearance: grossly normal and well kempt Mental Status: mental status grossly normal Objective Data Vital Signs Vital Signs: Vital Signs - 24 hr 07/12/20 10:00 07/12/20 12:00 07/12/20 14:00 Temperature 36.6 C Pulse Rate 92 83 90 Respiratory Rate 30 H Blood Pressure 132/52 L Pulse Oximetry 100 07/12/20 14:35 07/12/20 14:45 07/12/20 16:00 Temperature 36.4 C L Pulse Rate 85 84 97 Respiratory Rate 20 20 40 H Blood Pressure 117/48 L Pulse Oximetry 92 89 L 07/12/20 18:00 07/12/20 20:00 07/12/20 22:00 Temperature 36.6 C Pulse Rate 94 119 H 88 Respiratory Rate 22 H Blood Pressure 137/60 Pulse Oximetry 93 07/12/20 22:36 07/12/20 22:39 07/12/20 22:55 Temperature Pulse Rate 100 64 95 Respiratory Rate 20 20 Blood Pressure Pulse Oximetry 94 07/13/20 00:00 07/13/20 02:00 07/13/20 02:05 Temperature 36.6 C Pulse Rate 86 100 94 Respiratory Rate 20 40 H Blood Pressure 109/71 Pulse Oximetry 93 92 07/13/20 02:12 07/13/20 02:25 07/13/20 03:34 Temperature Pulse Rate 93 91 93 Respiratory Rate 30 H 28 H 26 H Blood Pressure Pulse Oximetry 93 07/13/20 04:00 07/13/20 06:00 07/13/20 08:00 Temperature 36.6 C 36.6 C Pulse Rate 74 89 91 Respiratory Rate 20 28 H Blood Pressure 110/74 139/51 L Pulse Oximetry 96 94 Intake/Output Intake/Output: Intake & Output 07/10/20 07/11/20 07/12/20 07/13/20 23:59 23:59 23:59
[2020-07-13] MEDS: FUROSEMIDE INJ 40 MG/4 ML VIAL 20 MG IV PUSH (11:59)
[2020-07-13] MEDS: acetaZOLAMIDE TAB 250 MG TABLET 500 MG PO (12:00)
[2020-07-13] MEDS: FINASTERIDE 5 MG TABLET PO (12:01)
[2020-07-13] MEDS: CHOLECALCIFEROL 1,000 UNITS TABLET 1000 UNITS PO (12:01)
[2020-07-13] MEDS: DIGOXIN TAB 125 MCG TABLET PO (12:01)
[2020-07-13] MEDS: MAGNESIUM OXIDE 400 MG TABLET PO (12:01)
[2020-07-13] MEDS: FERROUS SULFATE 324 MG TABLET PO (12:01)
[2020-07-13] MEDS: propylthiouraciL 50 MG TABLET PO (12:01)
[2020-07-13] MEDS: guaiFENesin 12 HR 600 MG TABCR PO (12:02)
[2020-07-13] MEDS: ISOSORBIDE MONONITRATE 30 MG TAB.ER.24H PO (12:02)
[2020-07-13] MEDS: AMIODARONE HCL 200 MG TABLET PO (12:03)
[2020-07-13] MEDS: TAMSULOSIN HCL 0.4 MG CAPSULE PO (12:04)
[2020-07-13] MEDS: PANTOPRAZOLE 40 MG TABLET PO (12:04)
[2020-07-13 12:09] LABS: Hematocrit 30.8 % (42.0-52.0); Hemoglobin 9.2 g/dL (14.0-18.0); Mean Corpuscular HGB Conc 29.9 g/dl (32-36); Mean Corpuscular Hemoglobin 25.8 pg (26-34); Mean Corpuscular Volume 86.3 fl (80-100); Mean Platelet Volume 10.4 fl (7.4-10.4); Platelet Count Result 195 k/mm3 (150-375); Red Blood Count 3.57 M/mm3 (4.6-6.20); Red Cell Distribution Width 18.1 % (11.5-14.5); White Blood Count 9.8 K/mm3 (4.5-10.0)
--- NOTE | 2020-07-13 16:37 | PM.PNCARD ---
Progress Note: A&P Assessment and Plan (1) Paroxysmal atrial fibrillation: Code(s): I48.0 - Paroxysmal atrial fibrillation Status: Acute Assessment and Plan: History of paroxysmal AFib, Continue oral amiodarone Obviously with recent SAH we will not anticoagulate now for his atrial fibrillation. (2) Pneumonia due to COVID-19 virus: Code(s): U07.1 - COVID-19; J12.82 - Pneumonia due to coronavirus disease 2018 Status: Acute Assessment and Plan: Pneumonia and respiratory failure secondary to COVID-19 virus, on CPAP. (3) CHF (congestive heart failure): Code(s): I50.9 - Heart failure, unspecified Status: Acute Assessment and Plan: History of CHF, not well-documented. Modest elevation of proBNP. Does not appear volume overloaded. IV fluids at 75 cc an hour. Will follow. (4) Subarachnoid hemorrhage: Code(s): I60.9 - Nontraumatic subarachnoid hemorrhage, unspecified Status: Inactive Assessment and Plan: Brief neuro exam was favorable. (5) Coronary artery disease: Code(s): I25.10 - Atherosclerotic heart disease of [place] coronary artery without angina pectoris Status: Inactive Assessment and Plan: History of CAD, not well documented, stable. Subjective Date/time seen: 07/13/20 16:37 Interval history: Patient is 74-year-old male initially patient was seen on 06/15/20 after he had fell from stairs while on Xarelto and presented emergency department and was found to have subarachnoid hemorrhage with accompanied by some vasogenic edema patient was sent to [facility] hospital there he was treated and [facility] local [facility], patient presented again to the emergency department on 06/23/20 and was transferred back to the [facility] and from there he was again discharged to local [facility] for [facility]hab, today patient was sent to emergency department the shortness of breath, upon EMS arrival patient was hypoxic and hypotensive, patient was on BiPAP and was given IV bolus upon arrival to emergency department his blood pressure was 74/38 and patient was given 30ml/kg bolus which did improve his symptoms, while at [facility] patient was diagnosed with COVID-19 and treated with Decadron and remdesivir, suspect the patient still has a lingering effect COVID-19 resulting in respiratory distress he is currently on BiPAP and unable to provide any history review of symptom, plan is to continue BiPAP and wean the patient off to nasal cannula, will continue to monitor patient and further recommendation to follow. 07/111patient remains on BiPAP Obviously still short of breath but no chest pain. In sinus rhythm frequent PACs 07/12/20: Maintaining NSR on telemetry on PO Amiodarone Date of service 07/13/2020: Sinus rhythm/sinus tachycardia with frequent PACs. Worsening respiratory status. Short of breath Review of Systems Review of Systems: ROS unobtainable: Yes unobtainable due to medical condition Constitutional: Constitutional: Reports fatigue and Reports weakness ENT: Denies epistaxis and Denies neck pain Cardiovascular: Cardiovascular: Denies chest pain, Denies pedal edema, Denies lightheadedness, Denies palpitations, Reports dyspnea and Reports dyspnea on exertion Respiratory: Respiratory: Reports cough, Reports dyspnea, Reports dyspnea on exertion and Denies wheezing Gastrointestinal: Gastrointestinal: Denies abdominal pain and Denies hematochezia Genitourinary: Genitourinary: Denies hematuria Musculoskeletal: Musculoskeletal: Denies back pain and Denies neck pain Integumentary/Breasts: Skin/Breast: Denies rash Neurologic: Reports system reviewed and no additional complaints, except as documented and Reports weakness Psychiatric:
[2020-07-13] MEDS: ALPRAZolam (*CRX) 0.25 MG TABLET PO (18:31)
[2020-07-13] MEDS: LORazepam INJ (*CRX) 2 MG/ML VIAL IV PUSH ×3 (18:32→21:55)
[2020-07-13] MEDS: MORPHINE SULFATE INJ (*CRX) 50 MG in SODIUM CHLORIDE 0.9% IV 95 ML IV CONT (18:32)
--- NOTE | 2020-07-13 18:39 | PM.IMPN ---
Progress Note: A&P Assessment and Plan (1) Acute respiratory failure with hypoxia: Code(s): J96.01 - Acute respiratory failure with hypoxia Status: Acute Assessment and Plan: 07/13/20 18:39 Patient is 74-year-old male initially patient was seen on 06/15/20 after he had fell from stairs while on Xarelto and presented emergency department and was found to have subarachnoid hemorrhage with accompanied by some vasogenic edema patient was sent to [facility] hospital there he was treated and sent to local halfway on 06/21/20, patient presented again to the emergency department on 06/23/20 and was transferred back to the [facility] and from there he was again discharged to local halfway for rehab, today patient was sent to emergency department the shortness of breath, upon EMS arrival patient was hypoxic and hypotensive, patient was on BiPAP and was given IV bolus upon arrival to emergency department his blood pressure was 74/38 and patient was given 30ml/kg bolus which did improve his symptoms, while at [facility] patient was diagnosed with COVID-19 and treated with Decadron and remdesivir, suspect the patient still has a lingering effect COVID-19 resulting in respiratory distress he is currently on BiPAP and unable to provide any history review of symptom, plan is to continue BiPAP and wean the patient off to nasal cannula, will continue to monitor patient and further recommendation to follow. 07/10 patient remains on BiPAP unable to wean the patient off consulted english tutor suspect the patient has late phase of COVID-19 as well as pulmonary edema and pneumonia, his BiPAP was adjusted, antibiotics were changed from Unasyn to Rocephin and continue doxy and vancomycin, started patient on Solu-Medrol to 60 mg q.6, continue updraft and added Pulmicort, suggested patient will benefit from diuresing, patient is quite hypoxic on BiPAP unable to provide any review of symptoms. Will continue to monitor goal is to wean the patient off BiPAP to nasal cannula. 07/11 patient with history of proximal atrial fibrillation on oral amiodarone however last night patient went into atrial fibrillation with RVR patient was seen by Cardiology started the patient on amiodarone drip this bring his heart rate under control and today patient was seen by hotel supplies salesperson again and stop the amnio drip and continue his oral amiodarone patient is clinically stable, unable to anticoagulate patient due to subarachnoid hemorrhage, today patient is off BiPAP and on high-flow nasal cannula seen by pulmonology recommending continue IV steroid and updraft, patient states is feeling much better today not a short of breath denies any fever or chills. 07/12 patient still is on BiPAP, patient with history of proximal atrial fibrillation went into RVR was started on amiodarone drip, now the rate is controlled was switch over to oral amiodarone seen by cardiology recommending continue present management, similarly patient seen by pulmonology patient clinically stable recommended the continue dexamethasone and updraft, patient states feeling little better, denies any fever or chill, he wants to eat ice cream I have spoken to nursing staff will try our best to get the patient ice cream however he gets short winded and we take him off the BiPAP. 07/13 today patient was quite hypoxic BiPAP was not able to maintain his oxygen saturation, patient was seen by jitney driver 0 for to intubate the patient however patient has decided to be DNR and now he wants comfort care, we have started patient on comfort measures with the IV morphine, Ativan as needed will continue to monitor. (2) Pneumonia due to COVID-19 virus: Code(s): U07.1 - COVID-19; J12.82 - Pneumonia due to coronavirus disease 2019 Status: Acute Assessment and Plan: Plan is above (3) Acute on chronic renal failure: Qualifiers: Acute renal failure type: unspecified Chronic kidney disease stage: stage 3 (moderate) Chronic kid
[2020-07-13] MEDS: MORPHINE SULFATE (*CRX) 4 MG/ML INJ IV PUSH (21:55)
--- NOTE | 2020-07-13 23:56 | PC.NURSE ---
Patient transferred to room 329 by bed. Report given to oncoming nurse. Belongings sent with patient to new patient room.
[2020-07-14] VITALS: BP 75/29; PULSE 79; RESP 10; TEMP 33.2; O2SAT 45; O2SAT 53
[2020-07-14] MEDS: MORPHINE SULFATE (*CRX) 2 MG/ML INJ IV PUSH ×2 (01:18→05:34)
[2020-07-14 04:00] VITALS: BP 89/38; PULSE 79; RESP 8; TEMP 34.6; O2SAT 38
--- NOTE | 2020-07-14 06:19 | PC.NURSE ---
Recieved patient from IMU with the report that he was on comfort cares. Patient has been flaccid and unresponsive through the shift. He appears to be breathing slow and easy without any advantageous sounds. A steady decrease in SpO2 has been observed through the shift and was last seen below 40%. Patient shows no other signs of discomfort and continues to rest quietly on only 2 lpm O2.
[2020-07-14] MEDS: CENTRAL LINE FLUSH 10 ML IV PUSH (07:31)
[2020-07-14 08:00] VITALS: BP 70/38; PULSE 75; RESP 14; TEMP 36.3; O2SAT 78; O2SAT 80
[2020-07-14] MEDS: methylPREDNISolone SOD SUCC 125 MG VIAL 60 MG IV PUSH (08:28)
[2020-07-14 11:05] VITALS: PULSE 100; RESP 15; O2SAT 90
--- NOTE | 2020-07-14 11:14 | PM.PNPUL ---
Progress Note: A&P Assessment and Plan (1) Pneumonia due to COVID-19 virus: Code(s): U07.1 - COVID-19; J12.82 - Pneumonia due to coronavirus disease 2019 Status: Acute (2) Acute respiratory failure with hypoxia: Code(s): J96.01 - Acute respiratory failure with hypoxia Status: Acute Assessment and Plan: The patient has decided to go with comfort measure only and hence I will sign off. Please feel free to call with any questions (3) CHF (congestive heart failure): Code(s): I50.9 - Heart failure, unspecified Status: Acute Subjective Date/time seen: 07/14/20 11:14 Interval history: Pt has decided to go comfort measures Review of Systems Review of Systems: All systems reviewed & are unremarkable except as noted in HPI and below Exam Const: General: cooperative, healthy appearing, alert, awake, Physically active, uncomfortable and other (acute respiratory distress) Nutritional Appearance: average body habitus Orientation/consciousness: oriented to person, oriented to place, oriented to time and patient oriented x3 HENMT: Head: normal to inspection, normocephalic and atraumatic Eyes: General: appearance normal, both eyes and all related structures Neck: Neck: trachea midline and supple Resp: Effort & Inspection: labored and respiratory distress Cardio: Jugular venous distension: no JVD Rate: regular rate Rhythm: regular rhythm Heart sounds: S1 normal heart sound present, S2 normal heart sound present, Murmur heart sound present and Rub heart sound present GI: Inspection: normal to inspection Auscultation: normal bowel sounds Skin: General skin exam: normal color and no rashes or lesions noted Neuro: General: oriented to person, oriented to place, oriented to time and patient oriented x3 Cognition (Neuro): normal cognition Speech: normal speech Extrem: General: normal to inspection, capillary refill normal and no clubbing, cyanosis or edema Psych: Appearance: grossly normal and well kempt Mental Status: mental status grossly normal Objective Data Vital Signs Vital Signs: Vital Signs - 24 hr 07/13/20 12:00 07/13/20 12:01 07/13/20 12:03 Temperature 36.2 C L Pulse Rate 99 94 94 Respiratory Rate 39 H Blood Pressure 132/97 H Pulse Oximetry 89 L 07/13/20 14:00 07/13/20 14:31 07/13/20 16:00 Temperature 36.7 C Pulse Rate 111 H 103 H 131 H Respiratory Rate 22 H 38 H Blood Pressure 135/53 L Pulse Oximetry 89 L 07/13/20 18:00 07/13/20 19:42 07/13/20 20:00 Temperature Pulse Rate 123 H 105 H Respiratory Rate 32 H Blood Pressure Pulse Oximetry 72 L 43 L 07/13/20 22:00 07/14/20 00:00 07/14/20 04:00 Temperature 33.2 C L 34.6 C L Pulse Rate 73 79 79 Respiratory Rate 10 L 8 L Blood Pressure 75/29 L 89/38 L Pulse Oximetry 53 L 38 L 07/14/20 08:00 07/14/20 11:05 Temperature 36.3 C L Pulse Rate 75 100 Respiratory Rate 14 15 Blood Pressure 70/38 L Pulse Oximetry 78 L 90 Intake/Output Intake/Output: Intake & Output 07/11/20 07/12/20 07/13/20 07/14/20 23:59 23:59 23:59 23:59 Intake Total 1670 820 150 500 Output Total 1300 1250 1150 Balance 370 -430 -1000 500 Meds/Results Medications: Active Medications Generic Name Dose Route Start Last Admin Trade Name Freq PRN Reason Stop Dose Admin Acetaminophen 650 mg 07/09/20 04:48 07/10/20 17:12 Acetaminophen 325 Mg Tablet PO 650 mg Q4H PRN Administration Mild Pain (1-3) or Fever Alprazolam 0.25 mg 07/10/20 12:18 07/13/20 18:31 Alprazolam (*Crx) 0.25 Mg Tablet PO 0.25 mg Q8HR PRN Administration Anxiety Budesonide 1 mg 07/13/20 20:00 07/13/20 19:42 Budesonide Respule Neb 0.5 Mg/2 Ml Amp INHALATION Not Given Q12HRT DAVID Guaifenesin 600 mg 07/09/20 09:00 07/14/20 08:25 Guaifenesin 12 Hr 600 Mg Tabcr PO Not Given Q12HR DAVID Morphine Sulfate 50 mg/ Sodium 100 mls @ 2 mls/hr 07/13/20 18:00 07/13/20 18:32
--- NOTE | 2020-07-14 11:22 | PM.PNCARD ---
Progress Note: A&P Assessment and Plan (1) Paroxysmal atrial fibrillation: Code(s): I48.0 - Paroxysmal atrial fibrillation Status: Acute Assessment and Plan: History of paroxysmal AFib, Continue oral amiodarone Obviously with recent SAH we will not anticoagulate now for his atrial fibrillation. (2) Pneumonia due to COVID-19 virus: Code(s): U07.1 - COVID-19; J12.82 - Pneumonia due to coronavirus disease 2018 Status: Acute Assessment and Plan: Pneumonia and respiratory failure secondary to COVID-19 virus, on CPAP. (3) CHF (congestive heart failure): Code(s): I50.9 - Heart failure, unspecified Status: Acute Assessment and Plan: History of CHF, not well-documented. Modest elevation of proBNP. Does not appear volume overloaded. (4) Subarachnoid hemorrhage: Code(s): I60.9 - Nontraumatic subarachnoid hemorrhage, unspecified Status: Inactive Assessment and Plan: Brief neuro exam was favorable. (5) Coronary artery disease: Code(s): I25.10 - Atherosclerotic heart disease of [place] coronary artery without angina pectoris Status: Inactive Assessment and Plan: History of CAD, not well documented, stable. Appears comfortable. Cardiology to sign off at this Subjective Date/time seen: 07/14/20 11:22 Interval history: Patient is 74-year-old male initially patient was seen on 06/15/20 after he had fell from stairs while on Xarelto and presented emergency department and was found to have subarachnoid hemorrhage with accompanied by some vasogenic edema patient was sent to [facility] hospital there he was treated and sent to local [facility], patient presented again to the emergency department on 06/23/20 and was [facility] and from there he was again [facility] to [facility], today patient was sent to emergency department the shortness of breath, upon EMS arrival patient was hypoxic and hypotensive, patient was on BiPAP and was given IV bolus upon arrival to emergency department his blood pressure was 74/38 and patient was given 30ml/kg bolus which did improve his symptoms, while at [facility] patient was diagnosed with COVID-19 and treated with Decadron and remdesivir, suspect the patient still has a lingering effect COVID-19 resulting in respiratory distress he is currently on BiPAP and unable to provide any history review of symptom, plan is to continue BiPAP and wean the patient off to nasal cannula, will continue to monitor patient and further recommendation to follow. 07/111patient remains on BiPAP Obviously still short of breath but no chest pain. In sinus rhythm frequent PACs 07/12/20: Maintaining NSR on telemetry on PO Amiodarone Date of service 07/13/2020: Sinus rhythm/sinus tachycardia with frequent PACs. Worsening respiratory status. Short of breath Date of service 07/14/2020: Patient is to be comfortable at this point. Receiving morphine. Minimally responsive Review of Systems Review of Systems: ROS unobtainable: Yes unobtainable due to medical condition Musculoskeletal: Musculoskeletal: Denies back pain Endocrine: Endocrine: Denies palpitations Exam Narrative: Exam Narrative: Ill-appearing tachypneic older male on BiPAP, appears comfortable GI: Inspection: non-distended Objective Data Vital Signs Vital Signs: Vital Signs - 24 hr 07/13/20 12:00 07/13/20 12:01 07/13/20 12:03 Temperature 36.2 C L Pulse Rate 99 94 94 Respiratory Rate 39 H Blood Pressure 132/97 H Pulse Oximetry 89 L 07/13/20 14:00 07/13/20 14:31 07/13/20 16:00 Temperature 36.7 C Pulse Rate 111 H 103 H 131 H Respiratory Rate 22 H 38 H Blood Pressure 135/53 L Pulse Oxi
--- NOTE | 2020-07-14 13:30 | PM.DDS ---
Discharge Sum: Prov Provider Primary care physician: UNKNOWN,DOCTOR Admitting provider: Alice Graham MD Consults: 07/10/20 Consult to Physician Routine Comment: heart care cardiology Consulting Provider: Oumou Phelps Reason for consultation: svt Has provider been notified: No 07/10/20 08:40 Consult to Physician Routine Comment: DR. GRAHAM SPOKE WITH DR. DOS SANTOS Consulting Provider: Thalia Dos Santos machine scallop cutter/MD group to consult: Dr. Inman Reason for consultation: COVID1- pneumonia, requring high flow O2 Has provider been notified: Yes Discharge Sum: Summary Date and Time Date of admission: 07/08/20 18:01 Date of : 08/14/20 Time of : 11:44 Summary Details: Patient is 74-year-old male initially patient was seen on 06/15/20 after he had fell from stairs while on Xarelto and presented emergency department and was found to have subarachnoid hemorrhage with accompanied by some vasogenic edema patient was sent to [facility] there he was treated and sent to local shelter on 06/21/20, patient presented again to the emergency department on 06/23/20 and was transferred back to the [facility] and from there he was again discharged to local shelter for rehab, today patient was sent to emergency department the shortness of breath, upon EMS arrival patient was hypoxic and hypotensive, patient was on BiPAP and was given IV bolus upon arrival to emergency department his blood pressure was 74/38 and patient was given 30ml/kg bolus which did improve his symptoms, while at [facility] patient was diagnosed with COVID-19 and treated with Decadron and remdesivir, suspect the patient still has a lingering effect COVID-19 resulting in respiratory distress he is currently on BiPAP and unable to provide any history review of symptom, plan is to continue BiPAP and wean the patient off to nasal cannula, will continue to monitor patient and further recommendation to follow. 07/10 patient remains on BiPAP unable to wean the patient off consulted entertainment dancer suspect the patient has late phase of COVID-19 as well as pulmonary edema and pneumonia, his BiPAP was adjusted, antibiotics were changed from Unasyn to Rocephin and continue doxy and vancomycin, started patient on Solu-Medrol to 60 mg q.6, continue updraft and added Pulmicort, suggested patient will benefit from diuresing, patient is quite hypoxic on BiPAP unable to provide any review of symptoms. Will continue to monitor goal is to wean the patient off BiPAP to nasal cannula. 07/11 patient with history of proximal atrial fibrillation on oral amiodarone however last night patient went into atrial fibrillation with RVR patient was seen by Cardiology started the patient on amiodarone drip this bring his heart rate under control and today patient was seen by section crews activities clerk again and stop the amnio drip and continue his oral amiodarone patient is clinically stable, unable to anticoagulate patient due to subarachnoid hemorrhage, today patient is off BiPAP and on high-flow nasal cannula seen by pulmonology recommending continue IV steroid and updraft, patient states is feeling much better today not a short of breath denies any fever or chills. 07/12 patient still is on BiPAP, patient with history of proximal atrial fibrillation went into RVR was started on amiodarone drip, now the rate is controlled was switch over to oral amiodarone seen by cardiology recommending continue present management, similarly patient seen by pulmonology patient clinically stable recommended the continue dexamethasone and updraft, patient states feeling little better, denies any fever or chill, he wants to eat ice cream I have spoken to nursing staff will try our best to get the patient ice cream however he gets short winded and we take him off the BiPAP. on 07/13 patient was quite hypoxic BiPAP was not able to maintain his oxygen saturation, patient was seen by analyzer sales offered to intubate the
== END 2020-07-14 11:44 | disposition expired | DRG 871 ==
LOC: ANHED 18:07 → ANHIMU 18:41 → ANH3MEDSUR 07-13 23:46
PROVIDERS: Internal Medicine; Internal Medicine Cardiovascular Disease; Internal Medicine Critical Care Medicine; Admitting Provider Family Medicine; Emergency Provider Emergency Medicine; Visit Provider Family Medicine
DX: A41.89 Other specified sepsis (principal); U07.1 COVID-19; J12.82 Pneumonia due to coronavirus disease 2019; J96.01 Acute respiratory failure with hypoxia; I60.9 Nontraumatic subarachnoid hemorrhage, unspecified; N17.9 Acute kidney failure, unspecified; I48.20 Chronic atrial fibrillation, unspecified; I50.9 Heart failure, unspecified; I25.10 Atherosclerotic heart disease of native coronary artery without angina pectoris; N18.30 Chronic kidney disease, stage 3 unspecified; E05.90 Thyrotoxicosis, unspecified without thyrotoxic crisis or storm; I95.9 Hypotension, unspecified; N40.0 Benign prostatic hyperplasia without lower urinary tract symptoms; J44.9 Chronic obstructive pulmonary disease, unspecified; K21.9 Gastro-esophageal reflux disease without esophagitis; M81.0 Age-related osteoporosis without current pathological fracture; D50.9 Iron deficiency anemia, unspecified; I65.29 Occlusion and stenosis of unspecified carotid artery; Z87.891 Personal history of nicotine dependence
CPT/HCPCS: 36415; 36569; 36600; 70450; 71045; 80048; 80053; 80162; 80202; 81001; 82375; 82728; 82805; 83050; 83605; 83615; 83735; 83880; 84439; 84443; 84484; 85025; 85027; 85610; 85730; 86140; 87040; 87086; 93005; 93306; 94002; 94003; 94640; 96361; 96365; 96368; 96375; 99291; A9270; C1751; J0282; J0295; J0696; J1100; J1940; J2060; J2270; J2543; J2930; J3370; J3475; J3480; J7030; J7512